=== PATIENT | female | born 1935 | race African-American/Black ===

== ENCOUNTER → 2018-10-25 | Outpatient (CLI) | payer MEDICARE ==
[2014-08-09 12:30] VITALS: BP 124/76
[~2018-10-25] MED LIST: ACET325T9 PO; ASPI325T8 PO; HYDR-2145 PO; LISI10TA2 PO
--- NOTE | 2018-10-25 11:42 | RAD ---
DATE: 10/25/2018 EXAM: MAMMO NORM SCREENING BILATERAL HISTORY: Routine screening COMPARISON: 05/07/2015 This study was interpreted with the benefit of Computerized Aided Detection (CAD). Breast Density: SCATTERED The breast parenchyma shows scattered fibroglandular densities. Breast parenchyma level B. FINDINGS: 2-D and 3-D tomosynthesis imaging was performed in CC and MLO projections. Several small smooth nodules are noted in both breasts. Bilateral smooth nodules such as this tended to be benign. The largest nodule on the left lies posteriorly and demonstrates an internal lucency suggesting the fatty hilum of an intramammary lymph node. On the right there is an 8 mm nodule at the 6:00 location as best seen on oblique tomosynthesis image #29 which appears to have increased in size. No spiculated mass or architectural distortion is evident. Multiple benign type calcifications are again noted. No suspicious microcalcifications have developed. IMPRESSION: Probably benign smooth bilateral breast nodules, although one of these on the right has increased in size since 05/07/2015. Right breast ultrasound is suggested for further evaluation. BI-RADS CATEGORY: 0 INCOMPLETE: NEEDS ADDITIONAL IMAGING EVALUATION AND/OR PRIOR MAMMOGRAMS FOR COMPARISON. RECOMMENDED FOLLOW-UP: ADD ADDITIONAL IMAGING PQRS compliance statement: Patient information was entered into a reminder system with a target due date for the next mammogram. Mammography is a sensitive method for finding small breast cancers, but it does not detect them all and is not a substitute for careful clinical examination. A negative mammogram does not negate a clinically suspicious finding and should not result in delay in biopsying a clinically suspicious abnormality. "Our facility is accredited by the [employer] Mammography Program."
== END | disposition home or self-care (01) ==
LOC: MAMMO 10:26
PROVIDERS: ATTEND Family Medicine
DX: Z12.31 Encounter for screening mammogram for malignant neoplasm of breast (principal)
CPT/HCPCS: 77063; 77067

== ENCOUNTER → 2018-10-26 | Outpatient (CLI) | payer MEDICARE ==
[2014-08-09 12:30] VITALS: BP 124/76
--- NOTE | 2018-10-26 11:33 | RAD ---
Right breast ultrasound, 10/26/2018: History: Abnormal screening study The screening mammograms demonstrated a nodule just inferior to the midline of the breast which appeared to have increased in size since previous studies. A targeted ultrasound exam of that region was therefore performed. At the 7:00 location approximately 3 cm in the nipple at mid depth there is a 7 x 5 x 7 mm smooth nodule. There are faint low level internal echoes without internal vascularity. There is faint posterior acoustic enhancement. This is probably a cyst. At the 6:00 location approximately 1 cm from the nipple a 2 x 4 x 5 mm hypoechoic nodule is seen. Its margins are smooth. It is wider than tall. There are low level internal echoes. This is probably a fibrocystic focus or complicated cyst. No other mass or unusual fluid collection was identified. IMPRESSION: Probably benign right breast nodules as described above, the largest of which most likely corresponds to the mammographic abnormality. Follow-up right mammography and right breast ultrasound in 6 months is suggested. BI-RADS 3-probably benign findings
== END | disposition home or self-care (01) ==
LOC: US 10:36
PROVIDERS: ATTEND Family Medicine
DX: R92.8 Other abnormal and inconclusive findings on diagnostic imaging of breast (principal)
CPT/HCPCS: 76641

== ENCOUNTER → 2019-08-01 | Outpatient (CLI) | payer MEDICARE ==
[2014-08-09 12:30] VITALS: BP 124/76
--- NOTE | 2019-08-01 09:53 | RAD ---
DATE: August 01, 2019 EXAM: MAMMO NORM DIAG RT, BREAST RIGHT SONOGRAPHY HISTORY: Follow-up of right breast nodules seen mammographically and sonographically. COMPARISON: October 25, 2018 and October 26, 2018. This study was interpreted with the benefit of Computerized Aided Detection (CAD). DIAGNOSTIC RIGHT-SIDED MAMMOGRAPHY FINDINGS: Breast Density: SCATTERED The breast parenchyma shows scattered fibroglandular densities. Breast parenchyma level B.. Nodules are stable. No new nodule or spiculated lesion or clustering of pleomorphic microcalcifications are evident. RIGHT BREAST SONOGRAPHY: High-resolution sonography of the 6 and 7:00 positions of the right breast was performed. At the 6:00 position 1 cm from the nipple, a 4 mm hypoechoic nodule is seen which is unchanged in size. At the 7:00 position 3 cm from the nipple, a 6 mm hypoechoic nodule is seen which is unchanged. IMPRESSION: Stable right breast nodules mammographically and sonographically. Recommend bilateral mammography in 6 months with right breast sonography. BI-RADS CATEGORY: 3 PROBABLE BENIGN-SHORT TERM F/U RECOMMENDED FOLLOW-UP: 6M 6 MONTH FOLLOW-UP PQRS compliance statement: Patient information was entered into a reminder system with a target due date January 31, 2020 for the next mammogram. Mammography is a sensitive method for finding small breast cancers, but it does not detect them all and is not a substitute for careful clinical examination. A negative mammogram does not negate a clinically suspicious finding and should not result in delay in biopsying a clinically suspicious abnormality. "Our facility is accredited by the [employer] Mammography Program." The patient's breast density may affect the ability of mammography to detect breast cancer. There are 4 categories of breast density, A, B, C and D. Breast density A means that most of the breast tissue is replaced with adipose tissue and therefore is not dense. Breast density B means that the breast tissue is mildly dense and scattered. Breast density C means that the breast tissue is heterogeneously dense. Breast density D means that the breast tissue is very dense. Breast densities especially C and D may decrease the sensitivity of mammography to detect breast cancer. Therefore, the patient may benefit from 3-D breast mammography (3D breast tomography) as a part of their screening mammogram. Insurance may or may not pay for this additional imaging. The patient's breast density based on today's mammogram is category B.
== END ==
LOC: MAMMO 13:04
PROVIDERS: ATTEND Family Medicine
DX: R92.8 Other abnormal and inconclusive findings on diagnostic imaging of breast (principal); N63.13 Unspecified lump in the right breast, lower outer quadrant
CPT/HCPCS: 76641; 77065; G0279; 77061

== ENCOUNTER 2020-03-05 09:26 | Inpatient (IN) | payer MEDICAID, MEDICARE ==
[~2020-03-05] VITALS: Ht 157.5 cm; Wt 73.4 kg
--- NOTE | 2020-03-05 10:11 | PHYS DOC ---
Past Medical History Past Medical History: Hypertension, TIA Past Surgical History: Tubal ligation Smoking Status: Former Smoker Alcohol Use: None Drug Use: None General Adult EDM: Chief Complaint: LOWER EXTREMITY SWELLING HPI: HPI: Patient is a 84 year old female who presented to ER today for evaluation of left leg pain and swelling since Tuesday. Patient denies any trouble breathing, no chest pain, no cough, no fever. Patient denies any injury, no recent travel or operation. Patient denies any history of blood clot disorder. Patient said when she walks she has blood pain in her left calf area Review of Systems: Review of Systems: Constitutional: Denies fever or chills. [] Eyes: Denies change in visual acuity. [] HENT: Denies nasal congestion or sore throat. [] Respiratory: Denies cough or shortness of breath. [] Cardiovascular: Denies chest pain or edema. [] GI: Denies abdominal pain, nausea, vomiting, bloody stools or diarrhea. [] : Denies dysuria. [] Musculoskeletal: Denies back pain or joint pain. Positive for left leg pain and swelling Integument: Denies rash. [] Neurologic: Denies headache, focal weakness or sensory changes. [] Endocrine: Denies polyuria or polydipsia. [] Lymphatic: Denies swollen glands. [] Psychiatric: Denies depression or anxiety. [] Heart Score: Risk Factors: Risk Factors: DM, Current or recent (<one month) smoker, HTN, HLP, family history of CAD, obesity. Risk Scores: Score 0 - 3: 2.5% MACE over next 6 weeks - Discharge Home Score 4 - 6: 20.3% MACE over next 6 weeks - Admit for Clinical Observation Score 7 - 10: 72.7% MACE over next 6 weeks - Early Invasive Strategies Allergies: Allergies: Allergies Coded Allergies Type Severity Reaction Last Updated Verified codeine Allergy Intermediate "sweats and shakes" 08/08/14 Yes Physical Exam: PE: Constitutional: Well developed, well nourished, no acute distress, non-toxic appearance. [] HENT: Normocephalic, atraumatic, bilateral external ears normal, oropharynx moist, no oral exudates, nose normal. [] Eyes: PERRLA, EOMI, conjunctiva normal, no discharge. [] Neck: Normal range of motion, no tenderness, supple, no stridor. [] Cardiovascular:Heart rate regular rhythm, no murmur [] Lungs & Thorax: Bilateral breath sounds clear to auscultation [] Abdomen: Bowel sounds normal, soft, no tenderness, no masses, no pulsatile masses. [] Skin: Warm, dry, no erythema, no rash. [] Back: No tenderness, no CVA tenderness. [] Extremities: left leg is tender and swollen, pitting edema, warm to touch. there is good dorsalis pedis pulse. Neurologic: Alert and oriented X 3, normal motor function, normal sensory function, no focal deficits noted. [] Psychologic: Affect normal, judgement normal, mood normal. [] Current Patient Data: Vital Signs: Vital Signs Date Time Temp Pulse Resp B/P (MAP) Pulse Ox O2 Delivery O2 Flow Rate FiO2 03/05/20 09:43 98.0 68 16 151/72 (98) 98 Room Air 98.0 EKG: EKG: [] Radiology/Procedures: Radiology/Procedures: [][facility] [address] [place] [address] IMAGING REPORT Signed PATIENT: ERIC MENDEZ ACCOUNT: [id number] : 1935 LOCATION: ER AGE: 84 SEX: F EXAM STATUS: REG ER ORD. PHYSICIAN: TORI MELÉNDEZ DO REASON: left leg swelling since Tuesday PROCEDURE: VENOUS LOWER EXTREMITY LEFT EXAM: Left lower extremity venous Doppler. HISTORY: Left lower extremity pain/swelling. COMPARISON: None. FINDINGS: Grayscale and Doppler analysis of the left lower extremity deep venous system was performed with graded compression and augmentation. The common femoral, greater saphenous, superficial femoral, popliteal and calf veins were assessed. There is occlusive thrombus within the common femoral, superficial femoral and popliteal veins. The greater saphenous vein is also involved. The calf veins do not appear involved. IMPRESSION: 1. Extensive left lower extremity deep venous thrombosis as above. These findings were called to Dr. Meléndez by Enoch Prasad on 03/05/2020 at 11:02 AM. FOR INTERNAL CODING PURPOSES RESULT CODE: (C) Electronically signed by: Charlette Prasad MD (03/05/2020 11:04 AM) [id number] DICTATED and SIGNED BY: CLIVE PRASAD MD DATE: 03/05/20 [id number] [place] [address] IMAGING REPORT Signed PATIENT: ERIC MENDEZ ACCOUNT: [id number] : 1935 LOCATION: ER AGE: 84 SEX: F EXAM STATUS: REG ER ORD. PHYSICIAN: TORI MELÉNDEZ DO REASON: SOA, DVT ON LEFT LEG PROCEDURE: PULMONARY PERFUSION IMG PARTIC NUCLEAR MEDICINE PERFUSION ONLY SCAN History: Shortness of air, DVT in left leg. Comparison: AP chest, same day. Technique: Perfusion portion performed after intravenous administration of 4.4 mCi Technetium 99m MAA. Multiple projection planar images of the lungs were obtained. Findings: Ventilation imaging not performed due to aerosolized droplet precautions. Perfusion images demonstrate no segmental perfusion defects. Elevation of right hemidiaphragm is noted. There is a small defect of the posterior right upper lung which may relate to attenuation from large calcified right paratracheal lymph nodes. IMPRESSION: Perfusion only imaging suggests there is a low probability for pulmonary embolus. Electronically signed by: Leroy Childs MD (03/05/2020 1:27 PM) [id number] DICTATED and SIGNED BY: LEROY CHILDS MD DATE: 03/05/20 [id number] [place], [place] [id number] IMAGING REPORT Signed PATIENT: ERIC MENDEZ ACCOUNT: [id number] : 1935 LOCATION: ER AGE: 84 SEX: F EXAM STATUS: REG ER ORD. PHYSICIAN: TORI MELÉNDEZ DO REASON: SHORTNESS OF BREATH PROCEDURE: CHEST AP ONLY EXAM: CHEST ONE VIEW. HISTORY: Shortness of breath. COMPARISON: 08/08/2014. FINDINGS: A frontal view of the chest is obtained. There are no confluent infiltrates. Moderate elevation of the right hemidiaphragm appears chronic. Linear scarring in the left midlung is also chronic. There is no pneumothorax or pleural effusion. The heart is not enlarged. Calcified lymph nodes likely reflect old granulomatous disease. There are atherosclerotic calcifications of the aorta. IMPRESSION: 1. No confluent infiltrates. Electronically signed by: Charlette Prasad MD (03/05/2020 12:05 PM) [id number] DICTATED and SIGNED BY: CLIVE PRASAD MD DATE: 03/05/20 1201 Course & Med Decision Making: Course & Med Decision Making Pertinent Labs and Imaging studies reviewed. (See chart for details) [] Dragon Disclaimer: Dragon Disclaimer: This electronic medical record was generated, in whole or in part, using a voice recognition dictation system. Departure Departure Impression: Primary Impression: DVT (deep venous thrombosis) Disposition: ADMITTED INPATIENT Admitting Physician: ALESSANDRO (DR. Diaz) Referrals: WISAM MENDOZA MD (PCP) Justicifation of Admission Dx: Justifications for Admission: Justification of Admission Dx: N/A TORI MELÉNDEZ DO Mar 05, 2020 10:11
--- NOTE | 2020-03-05 11:07 | RAD ---
EXAM: Left lower extremity venous Doppler. HISTORY: Left lower extremity pain/swelling. COMPARISON: None. FINDINGS: Grayscale and Doppler analysis of the left lower extremity deep venous system was performed with graded compression and augmentation. The common femoral, greater saphenous, superficial femoral, popliteal and calf veins were assessed. There is occlusive thrombus within the common femoral, superficial femoral and popliteal veins. The greater saphenous vein is also involved. The calf veins do not appear involved. IMPRESSION: 1. Extensive left lower extremity deep venous thrombosis as above. These findings were called to Dr. Becerra by Enoch Prasad on 03/05/2020 at 11:02 AM. FOR INTERNAL CODING PURPOSES RESULT CODE: (C) Electronically signed by: Charlette Prasad MD (03/05/2020 11:04 AM) [id number]
[2020-03-05 11:20] LABS: BASO % 1 % (0-3); EOS # 0.1 x10^3/uL (0.0-0.7); EOS % 1 % (0-3); HEMATOCRIT 39.7 % (36.0-47.0); HEMOGLOBIN 13.5 g/dL (12.0-15.5); LYMPH # 1.2 x10^3/uL (1.0-4.8); LYMPH % 13 % (24-48); MEAN CORPUSCULAR HEMOGLOBIN 31 pg (25-35); MEAN CORPUSCULAR HGB CONC 34 g/dL (31-37); MEAN CORPUSCULAR VOLUME 92 fL (79-100); MONO # 0.8 x10^3/uL (0.0-1.1); MONO % 9 % (0-9); NEUT # 6.9 x10^3/uL (1.8-7.7); NEUT % 77 % (31-73); PLATELET COUNT 159 x10^3/uL (140-400); RED BLOOD COUNT 4.31 x10^6/uL (3.50-5.40); RED CELL DISTRIBUTION WIDTH 12.6 % (11.5-14.5)
[2020-03-05 11:30] LABS: CALCIUM 9.3 mg/dL (8.5-10.1); CREATININE 1.5 mg/dL (0.6-1.0); GFR 39.9; POTASSIUM 3.9 mmol/L (3.5-5.1)
[2020-03-05 11:31] LABS: PROTHROMBIN TIME PATIENT 13.2 SEC (11.7-14.0)
[2020-03-05 11:35] LABS: ALBUMIN 3.6 g/dL (3.4-5.0); ALBUMIN/GLOBULIN RATIO 0.9 (1.0-1.7); TOTAL BILIRUBIN 0.7 mg/dL (0.2-1.0); TOTAL PROTEIN 7.8 g/dL (6.4-8.2)
--- NOTE | 2020-03-05 12:08 | RAD ---
EXAM: CHEST ONE VIEW. HISTORY: Shortness of breath. COMPARISON: 08/08/2014. FINDINGS: A frontal view of the chest is obtained. There are no confluent infiltrates. Moderate elevation of the right hemidiaphragm appears chronic. Linear scarring in the left midlung is also chronic. There is no pneumothorax or pleural effusion. The heart is not enlarged. Calcified lymph nodes likely reflect old granulomatous disease. There are atherosclerotic calcifications of the aorta. IMPRESSION: 1. No confluent infiltrates. Electronically signed by: Charlette Prasad MD (03/05/2020 12:05 PM) [id number]
[2020-03-05] MEDS ORDERED: MORPHINE SULFATE 4 MG/ML VIAL. IV ONE (12:45)
[2020-03-05] MEDS ORDERED: ONDANSETRON PF 4 MG/2 ML VIAL. IV PRN ×2 (13:00→13:15)
[2020-03-05] MEDS ORDERED: ALBUTEROL SULFATE 2.5 MG/3 ML NEBU. NEB PRN (13:00)
[2020-03-05] MEDS ORDERED: LORazepam 0.5 MG TABLET PO PRN (13:00)
[2020-03-05] MEDS ORDERED: guaiFENesin ORAL 200 MG/10 ML LIQUID. PO PRN (13:00)
[2020-03-05] MEDS ORDERED: ZOLPIDEM 5 MG TABLET. PO PRN (13:00)
[2020-03-05] MEDS ORDERED: ACETAMINOPHEN 325 MG TABLET. PO PRN ×2 (13:00)
[2020-03-05] MEDS ORDERED: DOCUSATE SODIUM 100 MG CAPSULE. PO PRN (13:00)
[2020-03-05] MEDS ORDERED: MORPHINE SULFATE 2 MG/ML VIAL. IV PRN (13:15)
--- NOTE | 2020-03-05 13:30 | RAD ---
NUCLEAR MEDICINE PERFUSION ONLY SCAN History: Shortness of air, DVT in left leg. Comparison: AP chest, same day. Technique: Perfusion portion performed after intravenous administration of 4.4 mCi Technetium 99m MAA. Multiple projection planar images of the lungs were obtained. Findings: Ventilation imaging not performed due to aerosolized droplet precautions. Perfusion images demonstrate no segmental perfusion defects. Elevation of right hemidiaphragm is noted. There is a small defect of the posterior right upper lung which may relate to attenuation from large calcified right paratracheal lymph nodes. IMPRESSION: Perfusion only imaging suggests there is a low probability for pulmonary embolus. Electronically signed by: Leroy Childs MD (03/05/2020 1:27 PM) [id number]
--- NOTE | 2020-03-05 14:44 | PDOC1 ---
History and Physical Date of Admission Date of Admission 03/05/2020 Identification/Chief Complaint Chief Complaint My leg is swollen Source Source: Chart review, Patient History of Present Illness History of Present Illness Patient is an 84-year-old female with past medical history of hypertension who was in her usual state of health until 4 days prior to her admission when she noticed some swelling over her left lower extremity. Patient probably attributed to some chips that she may have eaten with excess salt. The patient did not self medicate at home and continue to notice leg swelling and today she got quite concerned because she palpated a cord prompting her visit to the emergency department. Her daughters work at [employer] and they noticed also the significant swelling prompting her visit to the emergency department she has been found to have an extensive left lower extremity DVT and we have been asked to admit for further treatment. Patient denies any trauma to the area no recent falls no travels outside the area no prolonged time of immobility. This seems to be non-provoked DVT, she seems to have her age-appropriate cancer screening up-to-date, she will probably need at least minimum 3 months of anticoagulation further evaluation in the outpatient setting by hematology. Plan of care explained in detail to the patient and her daughter at bedside Past Medical History Past Medical History Past Medical History: Hypertension, TIA Past Surgical History: Tubal ligation Smoking Status: Former Smoker Alcohol Use: None Drug Use: None General Adult General Adult EDM: Chief Complaint: LOWER EXTREMITY SWELLING HPI: HPI: Patient is a 84 year old female who presented to ER today for evaluation of left leg pain and swelling since Tuesday. Patient denies any trouble breathing, no chest pain, no cough, no fever. Patient denies any injury, no recent travel or operation. Patient denies any history of blood clot disorder. Patient said when she walks she has blood pain in her left calf area Past Medical History Cardiovascular: HTN CENTRAL NERVOUS SYSTEM: TIA Past Surgical History Past Surgical History: Other, No pertinent history Family History Family History: Other (Reviewed and found negative noncontributory to the present) Current Problem List Problem List Problems Medical Problems: (1) DVT (deep venous thrombosis) Status: Acute Current Medications Current Medications Current Medications Medications (Trade) Dose Ordered Sig/Robbie Start Time Stop Time Status Last Admin Dose Admin Acetaminophen (Tylenol) 650 mg PRN Q6HRS PRN 03/05/20 13:00 Albuterol Sulfate (Ventolin Neb Soln) 2.5 mg PRN Q4HRS PRN 03/05/20 13:00 Aspirin (Alma Delia Aspirin) 325 mg DAILY 03/06/20 09:00 Docusate Sodium (Colace) 100 mg PRN BID PRN 03/05/20 13:00 Enoxaparin Sodium (Lovenox 80mg Syringe) 80 mg 1X ONCE 03/05/20 12:30 03/05/20 12:31 DC 03/05/20 13:13 80 MG Guaifenesin (Robitussin) 200 mg PRN Q4HRS PRN 03/05/20 13:00 Hydrochlorothiazide (Hydrodiuril) 25 mg DAILY 03/06/20 09:00 Lisinopril (Prinivil) 10 mg DAILY 03/06/20 09:00 Lorazepam (Ativan) 0.5 mg PRN Q4HRS PRN 03/05/20 13:00 Morphine Sulfate (Morphine Sulfate) 2 mg PRN Q2HR PRN 03/05/20 13:15 03/06/20 13:14 Ondansetron HCl (Zofran) 4 mg PRN Q8HRS PRN 03/05/20 13:15 03/06/20 13:14 Zolpidem Tartrate (Ambien) 5 mg PRN QHS PRN 03/05/20 13:00 Allergies Allergies Allergies Coded Allergies Type Severity Reaction Last Updated Verified codeine Allergy Intermediate "sweats and shakes" 08/08/14 Yes ROS Review of System CONSTITUTIONAL: No fever or chills EYES: No recent changes SKIN: No rash or itching CARDIOVASCULAR: No chest pain, syncope, palpitations, or edema RESPIRATORY: No SOB or cough GASTROINTESTINAL: No nausea, vomiting or abdominal pain NEUROLOGICAL: No headaches or weakness ENDOCRINE: No cold or heat intolerance GENITOURINARY: No urgency or frequency of urination MUSCULOSKELETAL: No back pain or joint pain LYMPHATICS: No enlarged lymph nodes PSYCHIATRIC: No anxiety or depression Physical Exam Physical Exam GEN.: No apparent distress. Alert and oriented. HEENT: Head is normocephalic, atraumatic NECK: Supple. LUNGS: Clear to auscultation. HEART: RRR, S1, S2 present. Faint systolic murmur no radiation to the carotid peripheral pulses intact ABDOMEN: Soft, nontender. Positive bowel sounds. EXTREMITIES: Without any cyanosis. NEUROLOGIC: Normal speech, normal tone PSYCHIATRIC: Normal affect, normal mood. SKIN: No ulcerations Vitals Vitals Vital Signs Date Time Temp Pulse Resp B/P (MAP) Pulse Ox O2 Delivery O2 Flow Rate FiO2 03/05/20 13:14 84 148/68 (94) 98 Room Air 03/05/20 09:43 98.0 16 98.0 Labs Labs Laboratory Tests Test 03/05/20 11:11 White Blood Count 9.0 x10^3/uL (4.0-11.0) Red Blood Count 4.31 x10^6/uL (3.50-5.40) Hemoglobin 13.5 g/dL (12.0-15.5) Hematocrit 39.7 % (36.0-47.0) Mean Corpuscular Volume 92 fL (79-100) Mean Corpuscular Hemoglobin 31 pg (25-35) Mean Corpuscular Hemoglobin Concent 34 g/dL (31-37) Red Cell Distribution Width 12.6 % (11.5-14.5) Platelet Count 159 x10^3/uL (140-400) Neutrophils (%) (Auto) 77 % (31-73) Lymphocytes (%) (Auto) 13 % (24-48) Monocytes (%) (Auto) 9 % (0-9) Eosinophils (%) (Auto) 1 % (0-3) Basophils (%) (Auto) 1 % (0-3) Neutrophils # (Auto) 6.9 x10^3/uL (1.8-7.7) Lymphocytes # (Auto) 1.2 x10^3/uL (1.0-4.8) Monocytes # (Auto) 0.8 x10^3/uL (0.0-1.1) Eosinophils # (Auto) 0.1 x10^3/uL (0.0-0.7) Basophils # (Auto) 0.0 x10^3/uL (0.0-0.2) Prothrombin Time 13.2 SEC (11.7-14.0) Prothromb Time International Ratio 1.0 (0.8-1.1) Activated Partial Thromboplast Time 26 SEC (24-38) Sodium Level 135 mmol/L (136-145) Potassium Level 3.9 mmol/L (3.5-5.1) Chloride Level 98 mmol/L (98-107) Carbon Dioxide Level 30 mmol/L (21-32) Anion Gap 7 (6-14) Blood Urea Nitrogen 26 mg/dL (7-20) Creatinine 1.5 mg/dL (0.6-1.0) Estimated GFR (Cockcroft-Gault) 39.9 BUN/Creatinine Ratio 17 (6-20) Glucose Level 101 mg/dL (70-99) Calcium Level 9.3 mg/dL (8.5-10.1) Total Bilirubin 0.7 mg/dL (0.2-1.0) Aspartate Amino Transf (AST/SGOT) 17 U/L (15-37) Alanine Aminotransferase (ALT/SGPT) 21 U/L (14-59) Alkaline Phosphatase 53 U/L (46-116) Total Protein 7.8 g/dL (6.4-8.2) Albumin 3.6 g/dL (3.4-5.0) Albumin/Globulin Ratio 0.9 (1.0-1.7) Laboratory Tests Test 03/05/20 11:11 White Blood Count 9.0 x10^3/uL (4.0-11.0) Red Blood Count 4.31 x10^6/uL (3.50-5.40) Hemoglobin 13.5 g/dL (12.0-15.5) Hematocrit 39.7 % (36.0-47.0) Mean Corpuscular Volume 92 fL (79-100) Mean Corpuscular Hemoglobin 31 pg (25-35) Mean Corpuscular Hemoglobin Concent 34 g/dL (31-37) Red Cell Distribution Width 12.6 % (11.5-14.5) Platelet Count 159 x10^3/uL (140-400) Neutrophils (%) (Auto) 77 % (31-73) Lymphocytes (%) (Auto) 13 % (24-48) Monocytes (%) (Auto) 9 % (0-9) Eosinophils (%) (Auto) 1 % (0-3) Basophils (%) (Auto) 1 % (0-3) Neutrophils # (Auto) 6.9 x10^3/uL (1.8-7.7) Lymphocytes # (Auto) 1.2 x10^3/uL (1.0-4.8) Monocytes # (Auto) 0.8 x10^3/uL (0.0-1.1) Eosinophils # (Auto) 0.1 x10^3/uL (0.0-0.7) Basophils # (Auto) 0.0 x10^3/uL (0.0-0.2) Prothrombin Time 13.2 SEC (11.7-14.0) Prothromb Time International Ratio 1.0 (0.8-1.1) Activated Partial Thromboplast Time 26 SEC (24-38) Sodium Level 135 mmol/L (136-145) Potassium Level 3.9 mmol/L (3.5-5.1) Chloride Level 98 mmol/L (98-107) Carbon Dioxide Level 30 mmol/L (21-32) Anion Gap 7 (6-14) Blood Urea Nitrogen 26 mg/dL (7-20) Creatinine 1.5 mg/dL (0.6-1.0) Estimated GFR (Cockcroft-Gault) 39.9 BUN/Creatinine Ratio 17 (6-20) Glucose Level 101 mg/dL (70-99) Calcium Level 9.3 mg/dL (8.5-10.1) Total Bilirubin 0.7 mg/dL (0.2-1.0) Aspartate Amino Transf (AST/SGOT) 17 U/L (15-37) Alanine Aminotransferase (ALT/SGPT) 21 U/L (14-59) Alkaline Phosphatase 53 U/L (46-116) Total Protein 7.8 g/dL (6.4-8.2) Albumin 3.6 g/dL (3.4-5.0) Albumin/Globulin Ratio 0.9 (1.0-1.7) VTE Prophylaxis Ordered VTE Prophylaxis Devices: Yes VTE Pharmacological Prophylaxi: Yes Assessment/Plan Assessment/Plan Occlusive thrombus within the common femoral, superficial femoral and popliteal veins. The greater saphenous vein is also involved. Essential hypertension Obesity with a BMI of 30 Hyponatremia Chronic kidney disease stage IIIb Plan We will start Eliquis Resume home medication Pain management Further recommendations based on the clinical Justicifation of Admission Dx: Justifications for Admission: Justification of Admission Dx: Comment: (Extensive lower extremity DVT) MARISA GOTTI MD Mar 05, 2020 14:43
--- NOTE | 2020-03-05 19:10 | NUR ---
The patient, ERIC MENDEZ, 84 y/o, F admitted by MARISA GOTTI MD, was given written information regarding hospital policies, unit procedures and contact persons. Valuables were checked and left with her.
[2020-03-05 19:23] VITALS: BP 134/68
[2020-03-05] MEDS: APIXABAN 5 MG TABLET. PO SCH (19:39)
[2020-03-05 23:08] VITALS: BP 126/63
[2020-03-06 02:40] VITALS: BP 121/62
[2020-03-06 07:58] VITALS: BP 136/71
[2020-03-06] MEDS ORDERED: LOSA50TA15 PO (08:33)
[2020-03-06] MEDS: APIXABAN 5 MG TABLET. PO SCH (08:33)
[2020-03-06] MEDS ORDERED: ASPI81TA59 PO (08:33)
[2020-03-06] MEDS ORDERED: ASPIRIN 325 MG TABLET PO SCH (09:00)
[2020-03-06] MEDS ORDERED: LISINOPRIL 10 MG TABLET PO SCH (09:00)
[2020-03-06] MEDS ORDERED: hydroCHLOROthiazide 25 MG TABLET PO SCH (09:00)
--- NOTE | 2020-03-06 09:19 | PDOC ---
PROGRESS NOTES Chief Complaint Chief Complaint A/P: Occlusive thrombus within the common femoral, superficial femoral and popliteal veins. The greater saphenous vein is also involved. Essential hypertension Obesity with a BMI of 30 Hyponatremia Chronic kidney disease stage IIIb History of Present Illness History of Present Illness Ms Holman is an 84yo F w/ PMHx HTN, CKD who was admitted for LLE swelling and pain, found with extensive DVT in LLE. 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 Had pain in her LLE and swelling starting on 03/02/2020 which progressed until she could not tolerate it anymore. VQ scan low risk for PE, no CP or SOB. Still with some pain in her leg, but swelling has decreased. Vitals Vitals Vital Signs Date Time Temp Pulse Resp B/P (MAP) Pulse Ox O2 Delivery O2 Flow Rate FiO2 03/06/20 07:58 98.0 76 17 136/71 (92) 99 Room Air 98.0 Physical Exam Lungs: Clear Labs LABS Laboratory Tests Test 03/05/20 11:11 03/06/20 07:48 White Blood Count 9.0 x10^3/uL (4.0-11.0) Red Blood Count 4.31 x10^6/uL (3.50-5.40) Hemoglobin 13.5 g/dL (12.0-15.5) Hematocrit 39.7 % (36.0-47.0) Mean Corpuscular Volume 92 fL (79-100) Mean Corpuscular Hemoglobin 31 pg (25-35) Mean Corpuscular Hemoglobin Concent 34 g/dL (31-37) Red Cell Distribution Width 12.6 % (11.5-14.5) Platelet Count 159 x10^3/uL (140-400) Neutrophils (%) (Auto) 77 % (31-73) Lymphocytes (%) (Auto) 13 % (24-48) Monocytes (%) (Auto) 9 % (0-9) Eosinophils (%) (Auto) 1 % (0-3) Basophils (%) (Auto) 1 % (0-3) Neutrophils # (Auto) 6.9 x10^3/uL (1.8-7.7) Lymphocytes # (Auto) 1.2 x10^3/uL (1.0-4.8) Monocytes # (Auto) 0.8 x10^3/uL (0.0-1.1) Eosinophils # (Auto) 0.1 x10^3/uL (0.0-0.7) Basophils # (Auto) 0.0 x10^3/uL (0.0-0.2) Prothrombin Time 13.2 SEC (11.7-14.0) Prothromb Time International Ratio 1.0 (0.8-1.1) Activated Partial Thromboplast Time 26 SEC (24-38) Sodium Level 135 mmol/L (136-145) Potassium Level 3.9 mmol/L (3.5-5.1) Chloride Level 98 mmol/L (98-107) Carbon Dioxide Level 30 mmol/L (21-32) Anion Gap 7 (6-14) Blood Urea Nitrogen 26 mg/dL (7-20) Creatinine 1.5 mg/dL (0.6-1.0) Estimated GFR (Cockcroft-Gault) 39.9 BUN/Creatinine Ratio 17 (6-20) Glucose Level 101 mg/dL (70-99) Calcium Level 9.3 mg/dL (8.5-10.1) Total Bilirubin 0.7 mg/dL (0.2-1.0) Aspartate Amino Transf (AST/SGOT) 17 U/L (15-37) Alanine Aminotransferase (ALT/SGPT) 21 U/L (14-59) Alkaline Phosphatase 53 U/L (46-116) Total Protein 7.8 g/dL (6.4-8.2) Albumin 3.6 g/dL (3.4-5.0) Albumin/Globulin Ratio 0.9 (1.0-1.7) Glucose (Fingerstick) 93 mg/dL (70-99) Assessment and Plan Assessmemt and Plan Problems Medical Problems: (1) DVT (deep venous thrombosis) Status: Acute Comment Review of Relevant I have reviewed the following items mickey (where applicable) has been applied. Labs Laboratory Tests Test 03/05/20 11:11 03/06/20 07:48 White Blood Count 9.0 x10^3/uL (4.0-11.0) Red Blood Count 4.31 x10^6/uL (3.50-5.40) Hemoglobin 13.5 g/dL (12.0-15.5) Hematocrit 39.7 % (36.0-47.0) Mean Corpuscular Volume 92 fL (79-100) Mean Corpuscular Hemoglobin 31 pg (25-35) Mean Corpuscular Hemoglobin Concent 34 g/dL (31-37) Red Cell Distribution Width 12.6 % (11.5-14.5) Platelet Count 159 x10^3/uL (140-400) Neutrophils (%) (Auto) 77 % (31-73) Lymphocytes (%) (Auto) 13 % (24-48) Monocytes (%) (Auto) 9 % (0-9) Eosinophils (%) (Auto) 1 % (0-3) Basophils (%) (Auto) 1 % (0-3) Neutrophils # (Auto) 6.9 x10^3/uL (1.8-7.7) Lymphocytes # (Auto) 1.2 x10^3/uL (1.0-4.8) Monocytes # (Auto) 0.8 x10^3/uL (0.0-1.1) Eosinophils # (Auto) 0.1 x10^3/uL (0.0-0.7) Basophils # (Auto) 0.0 x10^3/uL (0.0-0.2) Prothrombin Time 13.2 SEC (11.7-14.0) Prothromb Time International Ratio 1.0 (0.8-1.1) Activated Partial Thromboplast Time 26 SEC (24-38) Sodium Level 135 mmol/L (136-145) Potassium Level 3.9 mmol/L (3.5-5.1) Chloride Level 98 mmol/L (98-107) Carbon Dioxide Level 30 mmol/L (21-32) Anion Gap 7 (6-14) Blood Urea Nitrogen 26 mg/dL (7-20) Creatinine 1.5 mg/dL (0.6-1.0) Estimated GFR (Cockcroft-Gault) 39.9 BUN/Creatinine Ratio 17 (6-20) Glucose Level 101 mg/dL (70-99) Calcium Level 9.3 mg/dL (8.5-10.1) Total Bilirubin 0.7 mg/dL (0.2-1.0) Aspartate Amino Transf (AST/SGOT) 17 U/L (15-37) Alanine Aminotransferase (ALT/SGPT) 21 U/L (14-59) Alkaline Phosphatase 53 U/L (46-116) Total Protein 7.8 g/dL (6.4-8.2) Albumin 3.6 g/dL (3.4-5.0) Albumin/Globulin Ratio 0.9 (1.0-1.7) Glucose (Fingerstick) 93 mg/dL (70-99) Laboratory Tests Test 03/05/20 11:11 03/06/20 07:48 White Blood Count 9.0 x10^3/uL (4.0-11.0) Red Blood Count 4.31 x10^6/uL (3.50-5.40) Hemoglobin 13.5 g/dL (12.0-15.5) Hematocrit 39.7 % (36.0-47.0) Mean Corpuscular Volume 92 fL (79-100) Mean Corpuscular Hemoglobin 31 pg (25-35) Mean Corpuscular Hemoglobin Concent 34 g/dL (31-37) Red Cell Distribution Width 12.6 % (11.5-14.5) Platelet Count 159 x10^3/uL (140-400) Neutrophils (%) (Auto) 77 % (31-73) Lymphocytes (%) (Auto) 13 % (24-48) Monocytes (%) (Auto) 9 % (0-9) Eosinophils (%) (Auto) 1 % (0-3) Basophils (%) (Auto) 1 % (0-3) Neutrophils # (Auto) 6.9 x10^3/uL (1.8-7.7) Lymphocytes # (Auto) 1.2 x10^3/uL (1.0-4.8) Monocytes # (Auto) 0.8 x10^3/uL (0.0-1.1) Eosinophils # (Auto) 0.1 x10^3/uL (0.0-0.7) Basophils # (Auto) 0.0 x10^3/uL (0.0-0.2) Prothrombin Time 13.2 SEC (11.7-14.0) Prothromb Time International Ratio 1.0 (0.8-1.1) Activated Partial Thromboplast Time 26 SEC (24-38) Sodium Level 135 mmol/L (136-145) Potassium Level 3.9 mmol/L (3.5-5.1) Chloride Level 98 mmol/L (98-107) Carbon Dioxide Level 30 mmol/L (21-32) Anion Gap 7 (6-14) Blood Urea Nitrogen 26 mg/dL (7-20) Creatinine 1.5 mg/dL (0.6-1.0) Estimated GFR (Cockcroft-Gault) 39.9 BUN/Creatinine Ratio 17 (6-20) Glucose Level 101 mg/dL (70-99) Calcium Level 9.3 mg/dL (8.5-10.1) Total Bilirubin 0.7 mg/dL (0.2-1.0) Aspartate Amino Transf (AST/SGOT) 17 U/L (15-37) Alanine Aminotransferase (ALT/SGPT) 21 U/L (14-59) Alkaline Phosphatase 53 U/L (46-116) Total Protein 7.8 g/dL (6.4-8.2) Albumin 3.6 g/dL (3.4-5.0) Albumin/Globulin Ratio 0.9 (1.0-1.7) Glucose (Fingerstick) 93 mg/dL (70-99) Medications Current Medications Enoxaparin Sodium (Lovenox 80mg Syringe) 80 mg 1X ONCE SQ Last administered on 03/05/20at 13:13; Start 03/05/20 at 12:30; Stop 03/05/20 at 12:31; Status DC Morphine Sulfate (Morphine Sulfate) 4 mg 1X ONCE IV Last administered on 03/05/20at 13:13; Start 03/05/20 at 12:45; Stop 03/05/20 at 12:46; Status DC Ondansetron HCl (Zofran) 4 mg PRN Q4HRS PRN IV NAUSEA/VOMITING; Start 03/05/20 at 13:00 Zolpidem Tartrate (Ambien) 5 mg PRN QHS PRN PO INSOMNIA; Start 03/05/20 at 13:00 Acetaminophen (Tylenol) 650 mg PRN Q4HRS PRN PO TEMP OVER 100.4F OR MILD PAIN; Start 03/05/20 at 13:00 Docusate Sodium (Colace) 100 mg PRN BID PRN PO HARD STOOLS; Start 03/05/20 at 13:00 Albuterol Sulfate (Ventolin Neb Soln) 2.5 mg PRN Q4HRS PRN NEB SHORTNESS OF BREATH; Start 03/05/20 at 13:00 Guaifenesin (Robitussin) 200 mg PRN Q4HRS PRN PO COUGH; Start 03/05/20 at 13:00 Lorazepam (Ativan) 0.5 mg PRN Q4HRS PRN PO ANXIETY / AGITATION; Start 03/05/20 at 13:00 Acetaminophen (Tylenol) 650 mg PRN Q6HRS PRN PO MILD PAIN 1-3; Start 03/05/20 at 13:00 Aspirin (Alma Delia Aspirin) 325 mg DAILY PO ; Start 03/06/20 at 09:00 Hydrochlorothiazide (Hydrodiuril) 25 mg DAILY PO Last administered on 03/06/20at 08:29; Start 03/06/20 at 09:00 Lisinopril (Prinivil) 10 mg DAILY PO ; Start 03/06/20 at 09:00 Ondansetron HCl (Zofran) 4 mg PRN Q8HRS PRN IV NAUSEA/VOMITING; Start 03/05/20 at 13:15; Stop 03/06/20 at 13:14 Morphine Sulfate (Morphine Sulfate) 2 mg PRN Q2HR PRN IV PAIN; Start 03/05/20 at 13:15; Stop 03/06/20 at 13:14 Apixaban (Eliquis) 10 mg BID PO Last administered on 03/06/20at 08:33; Start 03/05/20 at 21:00; Stop 03/12/20 at 09:01 Apixaban (Eliquis) 5 mg BID PO ; Start 03/12/20 at 21:00 Active Scripts Active Reported Children's Aspirin (Aspirin) 81 Mg Tab.chew 1 Tab PO DAILY 30 Days Losartan Potassium 50 Mg Tablet 50 Mg PO DAILY Hydrochlorothiazide Tablet (Hydrochlorothiazide) 25 Mg Tablet 1 Tab PO DAILY Indication: blood pressure Next dose: 08/10/14 am Tylenol (Acetaminophen) 325 Mg Tablet 650 Mg PO PRN Vitals/I & O Vital Sign - Last 24 Hours 03/05/20 03/05/20 03/05/20 03/05/20 09:43 10:27 11:27 11:57 Temp 98.0 98.0 Pulse 68 82 78 74 Resp 16 B/P (MAP) 151/72 (98) 130/60 (83) 136/62 (86) 138/86 (103) Pulse Ox 98 100 100 100 O2 Delivery Room Air Room Air Room Air 03/05/20 03/05/20 03/05/20 03/05/20 12:27 13:14 13:44 14:44 Pulse 76 84 80 68 B/P (MAP) 111/76 (88) 148/68 (94) 149/68 (95) 134/61 (85) Pulse Ox 96 98 100 99 O2 Delivery Room Air Room Air Room Air 03/05/20 03/05/20 03/05/20 03/05/20 15:30 15:44 16:44 17:44 Pulse 72 70 82 B/P (MAP) 131/84 (100) 126/60 (82) 127/70 (89) Pulse Ox 97 100 98 99 O2 Delivery Room Air Room Air Room Air Room Air 03/05/20 03/05/20 03/05/20 03/05/20 18:14 19:23 20:00 23:08 Temp 98.8 98.0 98.8 98.0 Pulse 76 62 77 Resp 20 16 B/P (MAP) 139/63 (88) 134/68 (90) 126/63 (84) Pulse Ox 98 97 99 O2 Delivery Room Air Room Air Room Air Room Air 03/06/20 03/06/20 02:40 07:58 Temp 98.1 98.0 98.1 98.0 Pulse 77 76 Resp 17 17 B/P (MAP) 121/62 (81) 136/71 (92) Pulse Ox 100 99 O2 Delivery Room Air Room Air Intake and Output 03/05/20 03/05/20 03/06/20 14:59 22:59 06:59 Intake Total 120 ml 250 ml Output Total 150 ml Balance -30 ml 250 ml Justicifation of Admission Dx: Justifications for Admission: Justification of Admission Dx: N/A JOVANNI WALTON MD Mar 06, 2020 09:19
--- NOTE | 2020-03-06 09:41 | NUR ---
SW following. Discussed with RN, pt from home alone, room air. Pt is ambulatory, does not use a walker or cane. SW will continue to follow.
[2020-03-06 11:21] VITALS: BP 134/65
[2020-03-06] MEDS ORDERED: ASPIRIN CHEWABLE 81 MG TABLET. PO SCH (11:30)
[2020-03-06] MEDS ORDERED: LOSARTAN POTASSIUM 50 MG TABLET. PO SCH (11:30)
[2020-03-06 15:07] VITALS: BP 116/57
[2020-03-06] MEDS ORDERED: APIX5TAB PO (16:31)
--- NOTE | 2020-03-06 16:36 | PDOC3 ---
Discharge Summary Visit Information Date of Admission: Mar 05, 2020 Date of Discharge: Mar 06, 2020 Admitting Diagnosis: Acute left leg DVT Final Diagnosis Problems Medical Problems: (1) DVT (deep venous thrombosis) Status: Acute Brief Hospital Course Allergies Allergies Coded Allergies Type Severity Reaction Last Updated Verified codeine Allergy Intermediate "sweats and shakes" 08/08/14 Yes Vital Signs Vital Signs Date Time Temp Pulse Resp B/P (MAP) Pulse Ox O2 Delivery O2 Flow Rate FiO2 03/06/20 15:07 98.6 70 17 116/57 (76) 100 Room Air 98.6 Lab Results Laboratory Tests Test 03/05/20 11:11 03/06/20 07:48 White Blood Count 9.0 x10^3/uL (4.0-11.0) Red Blood Count 4.31 x10^6/uL (3.50-5.40) Hemoglobin 13.5 g/dL (12.0-15.5) Hematocrit 39.7 % (36.0-47.0) Mean Corpuscular Volume 92 fL (79-100) Mean Corpuscular Hemoglobin 31 pg (25-35) Mean Corpuscular Hemoglobin Concent 34 g/dL (31-37) Red Cell Distribution Width 12.6 % (11.5-14.5) Platelet Count 159 x10^3/uL (140-400) Neutrophils (%) (Auto) 77 % (31-73) Lymphocytes (%) (Auto) 13 % (24-48) Monocytes (%) (Auto) 9 % (0-9) Eosinophils (%) (Auto) 1 % (0-3) Basophils (%) (Auto) 1 % (0-3) Neutrophils # (Auto) 6.9 x10^3/uL (1.8-7.7) Lymphocytes # (Auto) 1.2 x10^3/uL (1.0-4.8) Monocytes # (Auto) 0.8 x10^3/uL (0.0-1.1) Eosinophils # (Auto) 0.1 x10^3/uL (0.0-0.7) Basophils # (Auto) 0.0 x10^3/uL (0.0-0.2) Prothrombin Time 13.2 SEC (11.7-14.0) Prothromb Time International Ratio 1.0 (0.8-1.1) Activated Partial Thromboplast Time 26 SEC (24-38) Sodium Level 135 mmol/L (136-145) Potassium Level 3.9 mmol/L (3.5-5.1) Chloride Level 98 mmol/L (98-107) Carbon Dioxide Level 30 mmol/L (21-32) Anion Gap 7 (6-14) Blood Urea Nitrogen 26 mg/dL (7-20) Creatinine 1.5 mg/dL (0.6-1.0) Estimated GFR (Cockcroft-Gault) 39.9 BUN/Creatinine Ratio 17 (6-20) Glucose Level 101 mg/dL (70-99) Calcium Level 9.3 mg/dL (8.5-10.1) Total Bilirubin 0.7 mg/dL (0.2-1.0) Aspartate Amino Transf (AST/SGOT) 17 U/L (15-37) Alanine Aminotransferase (ALT/SGPT) 21 U/L (14-59) Alkaline Phosphatase 53 U/L (46-116) Total Protein 7.8 g/dL (6.4-8.2) Albumin 3.6 g/dL (3.4-5.0) Albumin/Globulin Ratio 0.9 (1.0-1.7) Glucose (Fingerstick) 93 mg/dL (70-99) Laboratory Tests Test 03/06/20 07:48 Glucose (Fingerstick) 93 mg/dL (70-99) Brief Hospital Course Ms Holman is an 84yo F w/ PMHx HTN, CKD who was admitted for LLE swelling and pain, found with extensive DVT in LLE. 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 Had pain in her LLE and swelling starting on 03/02/2020 which progressed until she could not tolerate it anymore. VQ scan low risk for PE, no CP or SOB. Still with some pain in her leg, but swelling has decreased. Discussed with her and her daughter bedside she would be okay to go home 10 mg twice daily for an additional 5 days with Eliquis and then decrease to 5 mg twice daily and have follow-up outpatient with hematology oncology in 3 months to check a fibrinogen level and possibly repeat ultrasound. As this is unprovoked she could potentially get off Eliquis. Based on her age she is technically up-to-date on all cancer screenings as she even had breast ultrasound last year and is has had arrange for other [employer] screenings. She is unaware of any prior history of abnormal colonoscopies, but she states due to her CVA 4 years ago she cannot recall her colonoscopies very well her daughter said that she had a normal colonoscopy over 5 years ago. Consults: Hematology oncology Problem list: Occlusive thrombus within the common femoral, superficial femoral and popliteal veins. The greater saphenous vein is also involved. Essential hypertension Obesity with a BMI of 30 Hyponatremia Chronic kidney disease stage IIIb Greater than 30 minutes spent on d/c Discharge Information Condition at Discharge: Improved Follow Up: Weeks Disposition/Orders: D/C to Home Scheduled Apixaban (Eliquis) 5 Mg Tablet, 5 MG PO BID for Left leg DVT for 30 Days, #70 Ref 5 Prescribed by: JOVANNI WALTON MD on 03/06/20 1631 Aspirin (Children's Aspirin) 81 Mg Tab.chew, 1 TAB PO DAILY for Heart for 30 Days, #30 Ref 0 (Reported) Entered as Reported by: LOW AGUILAR on 03/06/20 0833 Last Taken: Unknown Dose on Unknown Date & Time Last Action: Continued on 03/06/20 1126 by JOVANNI WALTON MD Hydrochlorothiazide (Hydrochlorothiazide Tablet ) 25 Mg Tablet, 1 TAB PO DAILY, #30 Ref 5 (Reported) Indication: blood pressure Next dose: 08/10/14 am Entered as Reported by: VAN ROCK on 08/09/14 1254 Last Action: Continued on 03/05/20 1254 by MARISA GOTTI MD Losartan Potassium (Losartan Potassium) 50 Mg Tablet, 50 MG PO DAILY for htn, (Reported) Entered as Reported by: LOW AGUILAR on 03/06/20 0833 Last Taken: Unknown Dose on Unknown Date & Time Last Action: Continued on 03/06/20 1126 by JOVANNI WALTON MD Scheduled PRN Acetaminophen (Tylenol) 325 Mg Tablet, 650 MG PO for PAIN, (Reported) Entered as Reported by: RENÉ MIKE on 08/08/14 1132 Last Action: Continued on 03/05/20 1254 by MARISA GOTTI MD Justicifation of Admission Dx: Justifications for Admission: Justification of Admission Dx: N/A JOVANNI WALTON MD Mar 06, 2020 16:36
--- NOTE | 2020-03-06 16:57 | PDOC2 ---
CONSULT Date of Consult Date of Consult DATE: 03/06/20 TIME: 16:52 Reason for Consult Reason for Consult: Left lower extremity DVT Referring Physician Referring Physician: Dr. Verdin Identification/Chief Complaint Chief Complaint Left leg pain and swelling Problems: (1) DVT (deep venous thrombosis) Source Source: Chart review, Patient History of Present Illness Reason for Visit: Bekah Holman is an 84-year-old -[place] female with a prior medical history of hypertension who has been admitted to the hospital for management of DVT. Patient reports that she noticed left lower extremity swelling and pain over the last 1 week. Due to worsening symptoms, she elected to go to the emergency room for further evaluation. She received an ultrasound Doppler of the left lower extremity in the ER which showed DVT involving the left common femoral superficial femoral and popliteal veins. She has been admitted to the hospital and has started therapeutic anticoagulation. Hematology has been consulted to make recommendations regarding anticoagulation. Patient denies recent history of immobilization, prolonged travel, estrogen use, orthopedic interventions or other illnesses. She has no prior history of clots. She follows with primary care but has not received cancer screening for a few years. Past Medical History Cardiovascular: HTN CENTRAL NERVOUS SYSTEM: TIA Past Surgical History Past Surgical History: Other, No pertinent history Family History Family History: Other (Reviewed and found negative noncontributory to the present) Current Problem List Problem List Problems Medical Problems: (1) DVT (deep venous thrombosis) Status: Acute Current Medications Current Medications Current Medications Enoxaparin Sodium (Lovenox 80mg Syringe) 80 mg 1X ONCE SQ Last administered on 03/05/20at 13:13; Start 03/05/20 at 12:30; Stop 03/05/20 at 12:31; Status DC Morphine Sulfate (Morphine Sulfate) 4 mg 1X ONCE IV Last administered on 03/05/20at 13:13; Start 03/05/20 at 12:45; Stop 03/05/20 at 12:46; Status DC Ondansetron HCl (Zofran) 4 mg PRN Q4HRS PRN IV NAUSEA/VOMITING; Start 03/05/20 at 13:00 Zolpidem Tartrate (Ambien) 5 mg PRN QHS PRN PO INSOMNIA; Start 03/05/20 at 13:00 Acetaminophen (Tylenol) 650 mg PRN Q4HRS PRN PO TEMP OVER 100.4F OR MILD PAIN; Start 03/05/20 at 13:00 Docusate Sodium (Colace) 100 mg PRN BID PRN PO HARD STOOLS; Start 03/05/20 at 13:00 Albuterol Sulfate (Ventolin Neb Soln) 2.5 mg PRN Q4HRS PRN NEB SHORTNESS OF BREATH; Start 03/05/20 at 13:00 Guaifenesin (Robitussin) 200 mg PRN Q4HRS PRN PO COUGH; Start 03/05/20 at 13:00 Lorazepam (Ativan) 0.5 mg PRN Q4HRS PRN PO ANXIETY / AGITATION; Start 03/05/20 at 13:00 Acetaminophen (Tylenol) 650 mg PRN Q6HRS PRN PO MILD PAIN 1-3; Start 03/05/20 at 13:00 Aspirin (Alma Delia Aspirin) 325 mg DAILY PO ; Start 03/06/20 at 09:00; Stop 03/06/20 at 11:25; Status DC Hydrochlorothiazide (Hydrodiuril) 25 mg DAILY PO Last administered on 03/06/20at 08:29; Start 03/06/20 at 09:00 Lisinopril (Prinivil) 10 mg DAILY PO ; Start 03/06/20 at 09:00; Stop 03/06/20 at 11:25; Status DC Ondansetron HCl (Zofran) 4 mg PRN Q8HRS PRN IV NAUSEA/VOMITING; Start 03/05/20 at 13:15; Stop 03/06/20 at 13:14; Status DC Morphine Sulfate (Morphine Sulfate) 2 mg PRN Q2HR PRN IV PAIN; Start 03/05/20 at 13:15; Stop 03/06/20 at 13:14; Status DC Apixaban (Eliquis) 10 mg BID PO Last administered on 03/06/20at 08:33; Start 03/05/20 at 21:00; Stop 03/12/20 at 09:01 Apixaban (Eliquis) 5 mg BID PO ; Start 03/12/20 at 21:00 Aspirin (Aspirin Chewable) 81 mg DAILY PO Last administered on 03/06/20at 12:17; Start 03/06/20 at 11:30 Losartan Potassium (Cozaar) 50 mg DAILY PO Last administered on 7/23/20at 12:17; Start 03/06/20 at 11:30 Active Scripts Active Eliquis (Apixaban) 5 Mg Tablet 5 Mg PO BID 30 Days Reported Children's Aspirin (Aspirin) 81 Mg Tab.chew 1 Tab PO DAILY 30 Days Losartan Potassium 50 Mg Tablet 50 Mg PO DAILY Hydrochlorothiazide Tablet (Hydrochlorothiazide) 25 Mg Tablet 1 Tab PO DAILY Indication: blood pressure Next dose: 08/10/14 am Tylenol (Acetaminophen) 325 Mg Tablet 650 Mg PO PRN Allergies Allergies: Coded Allergies: codeine (Verified Allergy, Intermediate, "sweats and shakes", 08/08/14) ROS General: No: Chills, Night Sweats PSYCHOLOGICAL ROS: No: Anxiety, Behavioral Disorder Eyes: No Blurry vision, No Decreased vision HEENT: No: Heacaches, Visual Changes Hematological and Lymphatic: YES: Blood Clots; No: Bleeding Problems ENDOCRINE: No: Breast Changes, Galactorrhea Breast: No New/Changing Breast Lumps Respiratory: No: Cough, Hemoptysis Cardiovascular: No Chest Pain, No Palpitations Gastrointestinal: No Nausea, No Vomiting, No Abdominal Pain, No Constipation, No Melena, No Hematochezia Genitourinary: No Dysuria, No Frequency Musculoskeletal: No Gait Disturbance, No Joint Pain Neurological: No Behavorial Changes, No Bowel/Bladder ControlChng Skin: No Rash Physical Exam General: Alert, Oriented X3, Cooperative HEENT: Atraumatic, PERRLA Lungs: Clear to auscultation Heart: Regular rate Abdomen: Normal bowel sounds, Soft, No tenderness, No hepatosplenomegaly Extremities: No clubbing, No cyanosis Skin: No rashes Neuro: Normal gait, Normal speech Psych/Mental Status: Mental status NL MUSCULOSKELETAL: No joint tenderness Vitals VITALS Vital Signs Date Time Temp Pulse Resp B/P (MAP) Pulse Ox O2 Delivery O2 Flow Rate FiO2 03/06/20 15:07 98.6 70 17 116/57 (76) 100 Room Air 98.6 Labs Labs Laboratory Tests Test 03/05/20 11:11 03/06/20 07:48 White Blood Count 9.0 x10^3/uL (4.0-11.0) Red Blood Count 4.31 x10^6/uL (3.50-5.40) Hemoglobin 13.5 g/dL (12.0-15.5) Hematocrit 39.7 % (36.0-47.0) Mean Corpuscular Volume 92 fL (79-100) Mean Corpuscular Hemoglobin 31 pg (25-35) Mean Corpuscular Hemoglobin Concent 34 g/dL (31-37) Red Cell Distribution Width 12.6 % (11.5-14.5) Platelet Count 159 x10^3/uL (140-400) Neutrophils (%) (Auto) 77 % (31-73) Lymphocytes (%) (Auto) 13 % (24-48) Monocytes (%) (Auto) 9 % (0-9) Eosinophils (%) (Auto) 1 % (0-3) Basophils (%) (Auto) 1 % (0-3) Neutrophils # (Auto) 6.9 x10^3/uL (1.8-7.7) Lymphocytes # (Auto) 1.2 x10^3/uL (1.0-4.8) Monocytes # (Auto) 0.8 x10^3/uL (0.0-1.1) Eosinophils # (Auto) 0.1 x10^3/uL (0.0-0.7) Basophils # (Auto) 0.0 x10^3/uL (0.0-0.2) Prothrombin Time 13.2 SEC (11.7-14.0) Prothromb Time International Ratio 1.0 (0.8-1.1) Activated Partial Thromboplast Time 26 SEC (24-38) Sodium Level 135 mmol/L (136-145) Potassium Level 3.9 mmol/L (3.5-5.1) Chloride Level 98 mmol/L (98-107) Carbon Dioxide Level 30 mmol/L (21-32) Anion Gap 7 (6-14) Blood Urea Nitrogen 26 mg/dL (7-20) Creatinine 1.5 mg/dL (0.6-1.0) Estimated GFR (Cockcroft-Gault) 39.9 BUN/Creatinine Ratio 17 (6-20) Glucose Level 101 mg/dL (70-99) Calcium Level 9.3 mg/dL (8.5-10.1) Total Bilirubin 0.7 mg/dL (0.2-1.0) Aspartate Amino Transf (AST/SGOT) 17 U/L (15-37) Alanine Aminotransferase (ALT/SGPT) 21 U/L (14-59) Alkaline Phosphatase 53 U/L (46-116) Total Protein 7.8 g/dL (6.4-8.2) Albumin 3.6 g/dL (3.4-5.0) Albumin/Globulin Ratio 0.9 (1.0-1.7) Glucose (Fingerstick) 93 mg/dL (70-99) Laboratory Tests Test 03/06/20 07:48 Glucose (Fingerstick) 93 mg/dL (70-99) Images Images Reviewed results of ultrasound Doppler of lower extremities Assessment/Plan Assessment/Plan Assessment: DVT of lower extremity, left, unprovoked Hypertension Recommendations: -She has no antecedent history suggesting that this is a provoked DVT -Given unprovoked first deep vein thrombosis, would recommend 3 months of therapeutic anticoagulation -No additional evaluation is indicated at this time for hypercoagulable syndromes -Would recommend that she complete updated cancer screening including ma mmography and colonoscopy in view of this new unprovoked thrombosis -Follow-up in hematology oncology clinic as needed. Patient was given information for my office. Jose Wilkinson MD Medical Oncology/Hematology Ph: [phone] DAMIAN WILKINSON MD Mar 06, 2020 16:57
--- NOTE | 2020-03-06 18:23 | NUR ---
Discharge Note: Patient was discharged home with self care. Patients IV was discontinued without any complications per [facility]/ DEPUTY. Patient was given discharge summary/instructions, follow-ups, and educational material. Patient did not have any further questions or concerns. Patient was taken down to the main entrance via wheelchair with all personal belongings accompanied by ISABELA Delgado and daughter.
[2020-03-12] MEDS ORDERED: APIXABAN 5 MG TABLET. PO SCH (21:00)
== END 2020-03-06 18:26 | disposition home or self-care (01) | DRG 300 ==
LOC: ER 09:26 → ED HOLD 12:50 → 5 NORTH 12:57
PROVIDERS: ADMIT Internal Medicine; ATTEND Internal Medicine
DX: I82.412 Acute embolism and thrombosis of left femoral vein (principal); E87.1 Hypo-osmolality and hyponatremia; E66.9 Obesity, unspecified; I12.9 Hypertensive chronic kidney disease with stage 1 through stage 4 chronic kidney disease, or unspecified chronic kidney disease; N18.3 Chronic kidney disease, stage 3 (moderate); I82.432 Acute embolism and thrombosis of left popliteal vein; I82.492 Acute embolism and thrombosis of other specified deep vein of left lower extremity; Z86.73 Personal history of transient ischemic attack (TIA), and cerebral infarction without residual deficits; Z87.891 Personal history of nicotine dependence; Z98.51 Tubal ligation status; Z88.5 Allergy status to narcotic agent; Z68.29 Body mass index [BMI] 29.0-29.9, adult
CPT/HCPCS: 36415; 71045; 78580; 80053; 82962; 85025; 85610; 85730; 93971; 96361; 96374; 99285; A9540; J1650; J2270; G0378

== ENCOUNTER → 2020-12-04 | Outpatient (CLI) | payer MEDICARE ==
[~2020-12-04] MED LIST changes: +APIX5TAB PO; +ASPI81TA59 PO; +LISI10TA16 PO; -LISI10TA2 PO; +LOSA50TA15 PO
--- NOTE | 2020-12-04 17:52 | CARD ---
MR#: [id number] Date of Study: 12/04/2020 Ordering Physician: ALEXIS KEYS, Referring Physician: ALEXIS KEYS, Tech: Hortencia Degroot [facility] APPROVED REPORT EXAM: Two-dimensional and M-mode echocardiogram with Doppler and color Doppler. Other Information Quality : Technically LimitedAverageHR: 80bpm Rhythm : NSR INDICATION Hypertension/HCVD RISK FACTORS Hypertension Obesity Hyperlipidemia 2D DIMENSIONS RVDd2.7 (2.9-3.5cm)Left Atrium(2D)3.5 (1.6-4.0cm) IVSd0.9 (0.7-1.1cm)Aortic Root(2D)2.9 (2.0-3.7cm) LVDd4.4 (3.9-5.9cm)LVOT Diameter2.0 (1.8-2.4cm) PWd0.9 (0.7-1.1cm)LVDs2.2 (2.5-4.0cm) FS (%) 50.2 %SV72.5 ml LVEF(%)81.7 (>50%) Aortic Valve AoV [place].146.7cm/sAoV VTI34.0cm AO Peak GR.8.6mmHgLVOT [place].102.4cm/s AO Mean GR.4mmHgAVA (VMAX)2.14cm2 Mitral Valve MV E Cldxuovp96.8cm/sMV DECEL [id number] MV A Avisnqyi565.4cm/sE/A Ratio0.7 Tricuspid Valve TR P. Btvrftpf703ek/sTR Peak Gr.24mmHg LEFT VENTRICLE The left ventricle is normal size. There is normal left ventricular wall thickness. The left ventricu lar systolic function is normal and the ejection fraction is within normal range. Estimated ejection 55-60%. There is normal LV segmental wall motion. Tissue Doppler imaging reveals mild left ventricula r diastolic dysfunction. No left ventricle thrombus noted on this study. RIGHT VENTRICLE The right ventricle is normal size. There is normal right ventricular wall thickness. The right ventr icular systolic function is normal. ATRIA The left atrium size is normal. The right atrium size is normal. The interatrial septum is intact wit h no evidence for an atrial septal defect or patent foramen ovale as noted on 2-D or Doppler imaging. AORTIC VALVE The aortic valve is normal in structure and function. Doppler and Color Flow revealed no significant aortic regurgitation. There is no significant aortic valvular stenosis. MITRAL VALVE The mitral valve is normal in structure and function. There is no evidence of mitral valve prolapse. There is no mitral valve stenosis. Doppler and Color-flow revealed trace mitral regurgitation. TRICUSPID VALVE The tricuspid valve is normal in structure and function. Doppler and Color Flow revealed trace tricus pid regurgitation. Estimated PAP 21 mmHg. There is no tricuspid valve stenosis. PULMONIC VALVE Doppler and Color Flow revealed no pulmonic valvular regurgitation. There is no pulmonic valvular isi nosis. GREAT VESSELS The aortic root is normal in size. The ascending aorta is normal in size. The IVC is normal in size a nd collapses >50% with inspiration. PERICARDIAL EFFUSION There is no evidence of significant pericardial effusion. Critical Notification Critical Value: No <Conclusion> The left ventricular systolic function is normal and the ejection fraction is within normal range. E stimated ejection 55-60%. There is normal LV segmental wall motion. Signed by : Raji Franz, Electronically Approved : 12/04/2020 17:51:41
== END ==
LOC: ECHO 13:18
PROVIDERS: ATTEND Internal Medicine Cardiovascular Disease
DX: R01.1 Cardiac murmur, unspecified (principal)
CPT/HCPCS: 93306

== ENCOUNTER 2021-09-19 15:29 | Emergency (ER) | payer MEDICARE, MEDICAID ==
[~2021-09-19] VITALS: Ht 149.9 cm; Wt 80.0 kg
--- NOTE | 2021-09-19 16:03 | PHYS DOC ---
Past Medical History Past Medical History: Hypertension, TIA Past Surgical History: Tubal ligation Smoking Status: Never Smoker Alcohol Use: None Drug Use: None General Adult EDM: Chief Complaint: BREAST PROBLEM HPI: HPI: Patient is an 85-year-old female who presents to the emergency department for left breast pain, redness, warmth and swelling that started 1 week ago. Patient states that the pain is soreness and she rates it 5 out of 10. She has been taking Tylenol at home with little relief. Patient denies fevers, nipple discharge, lumps, wounds, injury, nausea, vomiting, body aches. She reports that she has never had these symptoms before. Review of Systems: Review of Systems: Constitutional: negative unless reported in HPI Eyes: negative unless reported in HPI HENT: negative unless reported in HPI Respiratory: negative unless reported in HPI Cardiovascular: negative unless reported in HPI GI: negative unless reported in HPI : negative unless reported in HPI Musculoskeletal: negative unless reported in HPI Integument: negative unless reported in HPI Neurologic: negative unless reported in HPI Endocrine: negative unless reported in HPI Lymphatic: negative unless reported in HPI Psychiatric: negative unless reported in HPI Heart Score: C/O Chest Pain: N/A Risk Factors: Risk Factors: DM, Current or recent (<one month) smoker, HTN, HLP, family history of CAD, obesity. Risk Scores: Score 0 - 3: 2.5% MACE over next 6 weeks - Discharge Home Score 4 - 6: 20.3% MACE over next 6 weeks - Admit for Clinical Observation Score 7 - 10: 72.7% MACE over next 6 weeks - Early Invasive Strategies Allergies: Allergies: Allergies Coded Allergies Type Severity Reaction Last Updated Verified codeine Allergy Intermediate "sweats and shakes" 09/19/21 Yes Physical Exam: PE: Constitutional: Well developed, well nourished, no acute distress, non-toxic appearance. [] HENT: Normocephalic, atraumatic, bilateral external ears normal, oropharynx moist, no oral exudates, nose normal. [] Eyes: PERRL, EOMI, conjunctiva normal, no discharge. [] Neck: Normal range of motion, no tenderness, supple, no stridor. [] Cardiovascular:Heart rate tachycardic rhythm, no murmur [] Lungs & Thorax: Bilateral breath sounds clear to auscultation [] Abdomen: Bowel sounds normal, soft, no tenderness, no masses, no pulsatile masses. [] Skin: Warm, dry, no erythema, no rash. [] Breast: Left breast is erythematous, warm with edema. Nipple is inverted and there is dumpling and. [place] appearance of breast, there is breast asymmetry, pain with palpation of breast, no palpable masses or lumps Back: Normal range of motion Extremities: No tenderness, no cyanosis, no clubbing, ROM intact, no edema. [] Neurologic: Alert and oriented X 3, normal motor function, normal sensory function, no focal deficits noted. [] Psychologic: Affect normal, judgement normal, mood normal. [] Current Patient Data: Labs: Laboratory Tests Test 09/19/21 16:00 White Blood Count 12.6 x10^3/uL Red Blood Count 3.95 x10^6/uL Hemoglobin 11.9 g/dL Hematocrit 36.2 % Mean Corpuscular Volume 92 fL Mean Corpuscular Hemoglobin 30 pg Mean Corpuscular Hemoglobin Concent 33 g/dL Red Cell Distribution Width 13.9 % Platelet Count 220 x10^3/uL Neutrophils (%) (Auto) 84 % Lymphocytes (%) (Auto) 9 % Monocytes (%) (Auto) 7 % Eosinophils (%) (Auto) 0 % Basophils (%) (Auto) 0 % Neutrophils # (Auto) 10.7 x10^3/uL Lymphocytes # (Auto) 1.1 x10^3/uL Monocytes # (Auto) 0.8 x10^3/uL Eosinophils # (Auto) 0.1 x10^3/uL Basophils # (Auto) 0.0 x10^3/uL Sodium Level 136 mmol/L Potassium Level 3.5 mmol/L Chloride Level 102 mmol/L Carbon Dioxide Level 26 mmol/L Anion Gap 8 Blood Urea Nitrogen 37 mg/dL Creatinine 1.6 mg/dL Estimated GFR (Cockcroft-Gault) 37.0 BUN/Creatinine Ratio 23 Glucose Level 116 mg/dL Calcium Level 8.3 mg/dL Total Bilirubin 0.2 mg/dL Aspartate Amino Transf (AST/SGOT) 14 U/L Alanine Aminotransferase (ALT/SGPT) 18 U/L Alkaline Phosphatase 49 U/L Total Protein 7.6 g/dL Albumin 3.0 g/dL Albumin/Globulin Ratio 0.7 Current Medications Medications (Trade) Dose Ordered Sig/Robbie Route PRN Reason Start Time Stop Time Status Last Admin Dose Admin Acetaminophen (Tylenol) 650 mg 1X ONCE PO 09/19/21 19:15 09/19/21 19:16 DC 09/19/21 19:23 Vital Signs: Vital Signs Date Time Temp Pulse Resp B/P (MAP) Pulse Ox O2 Delivery O2 Flow Rate FiO2 09/19/21 15:30 98.8 106 14 159/79 (105) 98 Room Air 98.8 EKG: EKG: [] Radiology/Procedures: Radiology/Procedures: []PROCEDURE: BREAST LEFT Exam: Ultrasound left breast Indication: Red warm swelling Technique: Real-time grayscale and color Doppler images of the left were obtained by the department surgical processor. Comparisons: None FINDINGS: Limited evaluation secondary to technical factors. In the left upper quadrant of the breast there is a ill-defined hypoechoic area which measures approximately 3.2 x 1.2 x 3.2 cm. Mildly enlarged left axillary lymph nodes are noted. IMPRESSION: 1. Ill-defined hypoechoic masslike area in the left upper quadrant measuring 3.2 x 1.2 x 3.2 cm. Findings are concerning for malignancy. Recommend referral to breast surgeon for further evaluation. 2. Abnormal appearing left axillary lymph node. FOR INTERNAL CODING PURPOSES Critical result: Findings discussed with DUYEN CABRERA APRN at 09/19/2021 8:29 PM. RESULT CODE: (C) Electronically signed by: Shahrzad Dc MD (09/19/2021 8:30 PM) [facility] DICTATED and SIGNED BY: SHAHRZAD DC MD DATE: 09/19/[id number] 0 Course & Med Decision Making: Course & Med Decision Making Pertinent Labs and Imaging studies reviewed. (See chart for details) [] Patient presents to the emergency department for left breast redness/warmth/swelling and pain that started 1 week ago. Ultrasound was performed to rule out abscess as well as blood work. Patient was noted to have mild leukocytosis with a white blood cell count of 12.6. Creatinine was 1.6 but this is consistent with her previous findings. 1944: I am still awaiting the ultrasound of patient's left breast. The cardiopulmonary technician was notified of the order that is pending. Per nursing staff cardiopulmonary technician was refusing to do the ultrasound because she said that they do not do ultrasounds of breasts in the emergency department. I contacted the cardiopulmonary technician and notified her that the order needed to be performed to rule out a breast abscess. The cardiopulmonary technician did finally agree to come over to do the ultrasound. I was notified by nursing staff that patient's family is upset over their wait time. I spoke with patient and her family and notified them of the reasonings for the delay in care and I apologized to them. Patient was provided pain medication in the emergency department. 2030: Ultrasound of patient's breast shows a infiltrating mass in the left upper quadrant measuring 3.2 x 1.2 x 3.2 cm with abnormal lymph nodes. Patient was discharged home with an antibiotic. She was given a printout of her ultrasound report. She was referred to a local breast surgeon. She is advised to follow- up with her primary care provider on Tuesday. I discussed with patient all findings and diagnostic testing as well as the need to follow-up with PCP for further evaluation and treatment or return to the ER if any new or worsening symptoms. Strict return precautions were also discussed at length. Patient voiced understanding and agreement with the plan. Patient is hemodynamically stable at the time of disposition. Dragon Disclaimer: Dragon Disclaimer: This electronic medical record was generated, in whole or in part, using a voice recognition dictation system. Departure Departure Impression: Primary Impression: Breast mass Qualified Codes: N63.23 - Unspecified lump in the left breast, lower outer quadrant Disposition: HOME / SELF CARE / HOMELESS Condition: GOOD Referrals: WISAM MENDOZA MD (PCP) Patient Instructions: Breast Cancer, What You Should Know, Breast Cyst Additional Instructions: You were seen in the emergency department today for left breast pain, redness, warmth and swelling. The ultrasound does show a likely infiltrating mass in the left upper quadrant of your breast with abnormal lymph node. You were given a printout of the ultrasound report. You need to follow-up with your primary care provider on Tuesday regarding these findings. You will need to follow-up with a breast surgeon. You can contact [facility] in [place] [facility] by contacting them at [phone]. You can also contact your primary care provider and ask them if they have a breast surgeon that they would like you to follow-up with. Return to the emergency department if you develop worsening of your redness/warmth/swelling, increased pain, high fevers refractory to treatment, intractable nausea or vomiting, shortness of breath, chest pain, severe weakness or lethargy. DUYEN CABRERA APRN Sep 19, 2021 16:03
[2021-09-19 16:14] LABS: BASO % 0 % (0-3); EOS # 0.1 x10^3/uL (0.0-0.7); EOS % 0 % (0-3); HEMATOCRIT 36.2 % (36.0-47.0); HEMOGLOBIN 11.9 g/dL (12.0-15.5); LYMPH # 1.1 x10^3/uL (1.0-4.8); LYMPH % 9 % (24-48); MEAN CORPUSCULAR HEMOGLOBIN 30 pg (25-35); MEAN CORPUSCULAR HGB CONC 33 g/dL (31-37); MEAN CORPUSCULAR VOLUME 92 fL (79-100); MONO # 0.8 x10^3/uL (0.0-1.1); MONO % 7 % (0-9); NEUT # 10.7 x10^3/uL (1.8-7.7); NEUT % 84 % (31-73); PLATELET COUNT 220 x10^3/uL (140-400); RED BLOOD COUNT 3.95 x10^6/uL (3.50-5.40); RED CELL DISTRIBUTION WIDTH 13.9 % (11.5-14.5); WHITE BLOOD COUNT 12.6 x10^3/uL (4.0-11.0)
[2021-09-19 16:22] LABS: CALCIUM 8.3 mg/dL (8.5-10.1); CREATININE 1.6 mg/dL (0.6-1.0); POTASSIUM 3.5 mmol/L (3.5-5.1)
[2021-09-19 16:29] LABS: ALBUMIN/GLOBULIN RATIO 0.7 (1.0-1.7); TOTAL BILIRUBIN 0.2 mg/dL (0.2-1.0); TOTAL PROTEIN 7.6 g/dL (6.4-8.2)
[2021-09-19 17:48] VITALS: BP 161/68
[2021-09-19] MEDS ORDERED: ACETAMINOPHEN 325 MG TABLET. PO ONE (19:15)
--- NOTE | 2021-09-19 20:32 | RAD ---
Exam: Ultrasound left breast Indication: Red warm swelling Technique: Real-time grayscale and color Doppler images of the left were obtained by the department s onographer. Comparisons: None FINDINGS: Limited evaluation secondary to technical factors. In the left upper quadrant of the breast there is a ill-defined hypoechoic area which measures approx imately 3.2 x 1.2 x 3.2 cm. Mildly enlarged left axillary lymph nodes are noted. IMPRESSION: 1. Ill-defined hypoechoic masslike area in the left upper quadrant measuring 3.2 x 1.2 x 3.2 cm. Fin dings are concerning for malignancy. Recommend referral to breast surgeon for further evaluation. 2. Abnormal appearing left axillary lymph node. FOR INTERNAL CODING PURPOSES Critical result: Findings discussed with DUYEN CABRERA APRN at 09/19/2021 8:29 PM. RESULT CODE: (C) Electronically signed by: Shahrzad Ocampo MD (09/19/2021 8:30 PM) SHERRY
== END 2021-09-19 21:00 | disposition home or self-care (01) ==
LOC: ER 15:29
DX: N64.4 Mastodynia (principal); Z86.73 Personal history of transient ischemic attack (TIA), and cerebral infarction without residual deficits; I10 Essential (primary) hypertension
CPT/HCPCS: 36415; 76641; 80053; 85025; 99284-25

== ENCOUNTER → 2021-09-28 | Outpatient (CLI) | payer MEDICAID, MEDICARE ==
[2021-09-19 17:48] VITALS: BP 161/68
[~2021-09-28] MED LIST changes: +HYDR-2761 PO
--- NOTE | 2021-09-28 09:32 | RAD ---
EXAM: Bilateral digital diagnostic mammogram with tomosynthesis; left breast sonogram. HISTORY: 85-year-old female presents with left breast pain and enlargement and evaluation of a left b reast mass demonstrated on a sonogram performed during a visit to the emergency department on 2. TECHNIQUE: Full-field digital craniocaudal and mediolateral oblique 2D and 3D tomosynthesis images of both breasts are obtained for evaluation. Computer aided detection was applied. Sonographic imaging of the left breast and axilla was also performed. COMPARISON: 09/19/2021, 08/01/2019, 10/26/2018, 05/07/2015 BREAST PARENCHYMAL DENSITY: Level B - Scattered fibroglandular densities. FINDINGS: There is a large irregular mass occupying a large portion of the right breast parenchyma. T his measures at least 11 cm in maximum dimension and contains mobile suspicious calcifications. There is left nipple retraction. There is left axillary lymphadenopathy. There are multiple stable circumscribed nodules within the right breast, consistent with previously d emonstrated suspected cysts and fibrocystic or fibroadenomatoid lesions on prior sonograms. The nearl y 3 year course of stability of these findings favors benignity. There has been minimal interval incr ease in a nodule within the right upper outer quadrant, consistent with a lymph node. The minimal int erval changeover operator a 3 mm interval favors benignity. There is no suspicious right breast calcification or architectural distortion. Sonographic imaging of the left breast demonstrates a large irregular mass centered at the 1:00 posit ion approximately 5 cm from nipple measuring 5.1 cm in maximum dimension. There are multiple surround ing satellite lesions, the largest of which measure 1.6 cm at the 4:00 position 5 cm from the nipple, 1.7 cm at the 5:00 position 6 cm from the nipple, and 2.6 cm at the 5:00 position 6 cm from the nipp le. There are multiple additional smaller areas of lesion infiltration throughout the left breast. Th ere are pathologically enlarged axillary lymph nodes with thickened cortices, the largest of which me asures 1.9 cm in long axis. IMPRESSION: 1. Suspicious infiltrated mass with multiple surrounding satellite lesions occupying the majority of the left breast and left axillary lymphadenopathy, the appearance of which favors metastatic breast c ancer. Sonographic and biopsy of the main portion of the mass and most suspicious axillary lymph node can be performed for definitive diagnosis. 2. No new suspicious finding involving the right breast. 3. BI-RADS Category 5: Highly suggestive of malignancy. Sonographic guided tissue sampling can be per formed for definitive diagnosis. These findings and recommendations were discussed with the patient and could indicate to the biomedical equipment technician of the referring physician at 1120 hours on 09/28/2021. If your mammogram demonstrates that you have dense breast tissue, which could hide abnormalities, and if you have other risk factors for breast cancer that have been identified, you might benefit from s upplemental screening tests that may be suggested by your ordering physician. Dense breast tissue, i n and of itself, is a relatively common condition. This information is not provided to cause undue c oncern, but rather to raise your awareness and to promote discussion with your physician regarding th e presence of other risk factors, in addition to dense breast tissue. A report of your mammography re sults will be sent to you and your physician. You should contact your physician if you have any ques tions or concerns regarding this report. Mammography is a sensitive method for finding small breast cancers, but it does not detect them all a nd is not a substitute for careful clinical examination. A negative mammogram does not negate a clin ically suspicious finding and should not result in delay in biopsying a clinically suspicious abnorma lity. PQRS compliance statement - Patient information was entered into a reminder system with a target due date for the next mammogram. "Our facility is accredited by the [employer] Mammography [employer]." Electronically signed by: Verónica Morales MD (09/28/2021 9:30 AM) [id number]
== END ==
LOC: US 08:30
PROVIDERS: ATTEND Family Medicine
DX: N63.21 Unspecified lump in the left breast, upper outer quadrant (principal); N63.11 Unspecified lump in the right breast, upper outer quadrant; R59.0 Localized enlarged lymph nodes; N64.89 Other specified disorders of breast
CPT/HCPCS: 76641; 77066

== ENCOUNTER → 2021-10-05 | Outpatient (CLI) | payer MEDICARE ==
[2021-09-19 17:48] VITALS: BP 161/68
[~2021-10-05] MED LIST changes: +LIDOCAINE 1% Multi-Dose 20 ML VIAL. INJ ONE
--- NOTE | 2021-10-05 13:17 | RAD ---
EXAM: Sonographic guided left breast biopsy; sonographic guided left axillary lymph node biopsy; left breast and axillary lymph node biopsy clip placement; left breast postbiopsy mammogram. HISTORY: 85-year-old female presents for sonographic guided biopsy of a large infiltrative mass withi n the left breast and a suspicious axillary lymph node demonstrated on prior imaging. TECHNIQUE: The risks of the procedure were discussed with the patient and written and verbal consent was obtained. A timeout was performed. Sonographic imaging of the right breast was performed, demonst rating multiple irregular contiguous masses. The main component of this mass is seen centrally at the 1:00 position. There are also enlarged axillary lymph nodes, the most suspicious of which demonstrat e cortical thickening and measures 1.4 cm in long axis. The skin overlying both areas was sterilely p repped, draped and infiltrated with 1 percent lidocaine. Multiple core samples were obtained through the breast mass and the axillary lymph node of concern and biopsy clips were advanced with sonographi c guidance. A post biopsy mammogram demonstrates the left breast biopsy clip in expected position. Th is is within the mass occupying the majority of the left breast and containing multiple pleomorphic c alcifications. The axillary clip is excluded from the [id number]. The patient tolerated the proced ure without immediate complication. IMPRESSION: Sonographic guided biopsy of an infiltrative mass within the left breast and a suspicious axillary lymph node. An addendum to this report will be submitted when pathology results are availab le. Electronically signed by: Verónica Morales MD (10/05/2021 1:15 PM) [id number]
--- NOTE | 2021-10-08 18:06 | PATHOLOGY ---
[facility] Accession Number: [id number] . 01 Material submitted: . PART A: breast - LEFT BREAST 1 O'CLOCK 5CMFN 5.1 CM. Modifiers: left PART B: lymph node - LEFT AXILLARY LYMPH NODE 1.5 CM. Modifiers: left, axilla . 02 Diagnosis: A. 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 . B. 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 . (MELISSA:jade; 10/08/2021) . . . CASE SUMMARY: (DCIS OF THE BREAST: Biopsy) . SPECIMEN . Procedure ___ Needle biopsy Specimen Laterality ___ Left . TUMOR . +Tumor Site ___ Clock position Specify Clock Position ___ 1 o'clock Histologic Type ___ Ductal carcinoma in situ (DCIS) +Architectural Pattern ___ Comedo Nuclear Grade ___ Grade III (high) Necrosis ___ Present, central (expansive "comedo" necrosis) +Microcalcifications ___ Not identified . COMMENT: ___ Metastatic deposit, lymph node referred for biomarker studies. . (MELISSA:azucena; 10/08/2021) . . . . . . . . . . . . . . . . . (MELISSA:azucena; 10/08/2021) [facility] 10/08/2021 1446 Local . 02 Comment: The full length of the cores of the left breast biopsy show dense stroma with multiple foci of high-grade ductal carcinoma in situ of a comedo type with extensive central necrosis. On the tip of the core in block A1, there is a focus highly suspicious for stromal invasion although it is on the edge of the core. For that reason, we undertook p63 and myosin on block A1. Results: . P63 on block A1: Positive in areas of DCIS, negative in areas suspicious for early stromal invasion. Myosin on block A1: Positive in areas of DCIS, negative in areas suspicious for early stromal invasion. . These impressions are telephoned to Dr. Clark on 10/08/2021 at approximately 1:00 in the afternoon. This case is seen in consultation with Dr. Joseph Grimes on 10/08/2021 who agrees with this diagnosis. . Breast tumor markers will be performed on block B1, the area of metastatic focus to lymph node. The results of these will be the subject of an addendum report. . (SWK:jade; 10/08/2021) . 02 Electronically signed: . Oliver Barrios MD, Pathologist NPI- [id number] . 01 Gross description: . A. The specimen is received in formalin, labeled "Bekah Holman, left breast". The specimen is additionally labeled on the requisition as, "left breast 1 o'clock 5 cm, 5.1 cm". Received are 3, ye-white to yellow, soft tissue needle core biopsies, ranging in length from 1.5-1.7 cm and, measuring 0.2 cm in diameter. The specimen is entirely submitted in cassettes A1-A3. . The specimen is removed from the patient at 1239 and placed in formalin at 1239 on 10/05/2021. The specimen is removed from formalin at 2140 on 10/05/2021. The specimen is in formalin for greater than 6 hours and less than 72 hours. . B. The specimen is received in formalin, labeled "Bekah Holman, left axilla". The specimen is additionally labeled on the requisition as, "left axillary lymph node 1.5 cm". Received are 3, ye-white to yellow, soft tissue needle core biopsies, ranging in length from 1.2-1.4 cm, and measuring 0.2 cm in diameter. The specimen is entirely submitted in cassette B1-B3. . The specimen is removed from the patient at 1246 and placed in formalin at 1246 on 10/05/2021. The specimen is removed from formalin at 2140 on 10/05/2021. The specimen is in formalin for greater than 6 hours and less than 72 hours. (JGG; 10/05/2021) JGG/JGG 10/06/2021 1225 [facility] . Pathologist provided ICD-10: D05.12, C77.3 . 02 CPT . 289380, 490941, D17259, [id number] Specimen Comment: A courtesy copy of this report has been sent to [phone] Specimen Comment: [id number], Specimen Comment: Report sent to , DR MENDOZA / DR CLARK Specimen Comment: A duplicate report has been generated due to demographic updates. Performed at: 01 [facility] [address] [id number] MD Joseph Grimes MD Phone: [phone] Performed at: 02 [facility] [address] [id number] MD Oliver Barrios MD Phone: [phone]
== END | disposition home or self-care (01) ==
LOC: MAMMO 12:30
PROVIDERS: ATTEND Surgery
DX: N63.21 Unspecified lump in the left breast, upper outer quadrant (principal); R92.8 Other abnormal and inconclusive findings on diagnostic imaging of breast; D05.12 Intraductal carcinoma in situ of left breast; C77.3 Secondary and unspecified malignant neoplasm of axilla and upper limb lymph nodes; I10 Essential (primary) hypertension; E66.9 Obesity, unspecified; Z86.73 Personal history of transient ischemic attack (TIA), and cerebral infarction without residual deficits; Z98.51 Tubal ligation status; Z98.890 Other specified postprocedural states; Z79.82 Long term (current) use of aspirin; Z79.899 Other long term (current) drug therapy; Z88.5 Allergy status to narcotic agent
CPT/HCPCS: 19083; 38505; 77065; 88305; 88341; 88342; 88361; A4648; C1819; 19084

== ENCOUNTER 2021-10-22 08:48 | Day surgery (SDC) | payer MEDICAID, MEDICARE ==
[~2021-10-22] VITALS: Ht 153.7 cm; Wt 80.0 kg
[~2021-10-22 08:48] MED LIST changes: +BUPIVACAINE-EPI 0.25%-1:200000 MPF 30 ML VIAL. ONE; +HEPARIN PF 500 UNIT/5 ML DISP.SYRIN. IVP ONE; -HYDR-2761 PO; +HYDROmorphone 2 MG/ML INJ. IVP PRN; +IV RINGERS,LACTATED 1000ML 1,000 ML IV SCH; -LIDOCAINE 1% Multi-Dose 20 ML VIAL. INJ ONE; +MORPHINE SULFATE 2 MG/ML INJ. IVP PRN; +PROCHLORPERAZINE 10 MG/2 ML VIAL. IVP PRN; +fentaNYL PF VIAL 100 MCG/2 ML VIAL IVP PRN
[2021-10-22] MEDS ORDERED: PROPOFOL 10 MG/ML (20ML) VIAL. IV ONE (09:33)
[2021-10-22] MEDS ORDERED: ONDANSETRON PF 4 MG/2 ML VIAL. ONE (09:33)
[2021-10-22] MEDS ORDERED: DEXAMETHASONE SOD PHOS 4 MG/ML VIAL ONE (09:34)
[2021-10-22] MEDS ORDERED: LIDOCAINE 1% PF 5 ML VIAL. ONE (09:34)
--- NOTE | 2021-10-22 12:34 | PDOC4 ---
Operative Note Operative Note Operative Note: Preoperative Diagnosis: Left breast cancer Postoperative Diagnosis: Same Procedure: Placement of Power Port-A-Cath using SonoSite guidance Surgeon: Bernard Anesthesia: Gen. EBL: 10 mL Specimen: None Drains: None Complications: None Indication: The patient is an 85-year-old female who was recently diagnosed with left breast cancer. A request was made for placement of a Port-A-Cath to allow for chemotherapy treatment. The details and risks of the procedure were discussed. The risks include bleeding, infection, vessel injury, pneumothorax, pain, anesthetic risk, port, catheter or tubing malfunction or dysfunction, potential need for additional surgery or procedure. The patient understands and would like to proceed. Description: The patient was placed supine on the operating table and general anesthesia was performed. The bilateral neck and chest were prepped with ChloraPrep and draped in a standard surgical manner. With SonoSite ultrasound guidance the right internal jugular vein was readily identified and appeared patent. Entry was made into the vein with the skinny introducer needle under ultrasound guidance. The skinny guidewire passed readily into the central venous system. A small incision was made at the skin exit site. The skinny sheath was then placed over the guidewire. The larger guidewire was then placed within the sheath into the central venous system. Intraoperative fluoroscopy confirmed good position of the guidewire in the central venous system. The dilator and sheath were then placed over the guidewire. The catheter portion was then inserted into the central venous system and visualized using fluoroscopy. A separate right upper chest skin incision was made with a scalpel. A subcutaneous pocket was developed with cautery of sufficient size to accommodate the port. The catheter was then tunneled subcutaneously to the level of the newly formed pocket. Using fluoroscopy the catheter was positioned with the tip in the distal superior vena cava. The catheter was then cut and assembled to the port. The port was then secured to the chest wall with two 2-0 Prolene sutures. Using the Borja needle the port readily aspirated and flushed without difficulty. Fluoroscopy confirmed good positioning of the catheter with no twists or kinks. The subcutaneous tissue was approximated with 3-0 Vicryl. The skin was then closed with 4-0 Monocryl. A sterile OpSite dressing was then applied. The patient tolerated the procedure well and was sent to the recovery room in stable condition. At the end of the case all counts were correct. TERRELL CLARK MD Oct 22, 2021 12:34
[2021-10-22] MEDS ORDERED: HYDR-2761 PO (12:36)
--- NOTE | 2021-10-22 12:37 | DISCH ---
DISCHARGE INSTRUCTIONS Condition on Discharge Condition on Discharge: Stable Activity After Discharge Activity Instructions for Disc: Resume previous activity Diet after Discharge Diet after Discharge: Regular Wound Incision Care Wound/Incision Care: Other, see below (keep dressing clean and dry) Follow-Up Follow up with: Oncology per appointment TERRELL CLARK MD Oct 22, 2021 12:37
[2021-10-22 13:02] VITALS: BP 130/73
--- NOTE | 2021-10-22 13:17 | RAD ---
XR CHEST 1V Clinical Indication: Reason: portacath placement / Spl. Instructions: / History: Comparison: AP chest March 05, 2020. Findings: There is right chest Port-A-Cath, tip in distal SVC. The cardiomediastinal silhouette is stable. Ther e are calcified bilateral hilar lymph nodes. There is stable moderate elevation of right hemidiaphrag m. There is mild left basilar atelectasis or scarring. There is no pneumothorax. No pleural effusion is appreciated. There is arthropathy of the bilateral shoulders. IMPRESSION: 1. Right chest Port-A-Cath tip in distal SVC. 2. Mild left basilar atelectasis or scarring. Electronically signed by: Leroy Childs MD (10/22/2021 1:14 PM) [id number]
== END 2021-10-22 13:42 | disposition home or self-care (01) ==
LOC: SURG 08:48
PROVIDERS: ATTEND Surgery
DX: Z45.2 Encounter for adjustment and management of vascular access device (principal); C50.912 Malignant neoplasm of unspecified site of left female breast; I10 Essential (primary) hypertension; E66.9 Obesity, unspecified; Z86.73 Personal history of transient ischemic attack (TIA), and cerebral infarction without residual deficits; Z79.899 Other long term (current) drug therapy; Z98.890 Other specified postprocedural states; Z98.51 Tubal ligation status; Z79.82 Long term (current) use of aspirin; Z88.5 Allergy status to narcotic agent
CPT/HCPCS: 36561; 71045; 76937; 77001; A4364; A4930; A6254; A6258; C1788; J0690; J1100; J1642; J2405; J2704; J3490; 76000; A4452; A4657

== ENCOUNTER → 2021-10-28 | Outpatient (CLI) | payer MEDICARE ==
[2021-10-22 13:02] VITALS: BP 130/73
[~2021-10-28] MED LIST changes: -BUPIVACAINE-EPI 0.25%-1:200000 MPF 30 ML VIAL. ONE; -HEPARIN PF 500 UNIT/5 ML DISP.SYRIN. IVP ONE; +HYDR-2761 PO; -HYDROmorphone 2 MG/ML INJ. IVP PRN; -IV RINGERS,LACTATED 1000ML 1,000 ML IV SCH; -MORPHINE SULFATE 2 MG/ML INJ. IVP PRN; -PROCHLORPERAZINE 10 MG/2 ML VIAL. IVP PRN; -fentaNYL PF VIAL 100 MCG/2 ML VIAL IVP PRN
[2021-10-28 09:59] LABS: BASO % 1 % (0-3); EOS # 0.2 x10^3/uL (0.0-0.7); EOS % 2 % (0-3); HEMATOCRIT 35.8 % (36.0-47.0); HEMOGLOBIN 11.6 g/dL (12.0-15.5); LYMPH # 1.4 x10^3/uL (1.0-4.8); LYMPH % 19 % (24-48); MEAN CORPUSCULAR HEMOGLOBIN 30 pg (25-35); MEAN CORPUSCULAR HGB CONC 32 g/dL (31-37); MEAN CORPUSCULAR VOLUME 92 fL (79-100); MONO # 0.8 x10^3/uL (0.0-1.1); MONO % 11 % (0-9); NEUT # 5.1 x10^3/uL (1.8-7.7); NEUT % 67 % (31-73); PLATELET COUNT 252 x10^3/uL (140-400); RED CELL DISTRIBUTION WIDTH 13.7 % (11.5-14.5); WHITE BLOOD COUNT 7.5 x10^3/uL (4.0-11.0)
[2021-10-28 10:09] LABS: CALCIUM 9.1 mg/dL (8.5-10.1); CREATININE 1.1 mg/dL (0.6-1.0); POTASSIUM 3.7 mmol/L (3.5-5.1)
[2021-10-28 10:16] LABS: ALBUMIN 3.5 g/dL (3.4-5.0); ALBUMIN/GLOBULIN RATIO 0.9 (1.0-1.7); TOTAL BILIRUBIN 0.3 mg/dL (0.2-1.0); TOTAL PROTEIN 7.6 g/dL (6.4-8.2)
== END ==
LOC: ONCLAB 09:02
PROVIDERS: ATTEND Internal Medicine Hematology & Oncology
DX: C50.012 Malignant neoplasm of nipple and areola, left female breast (principal)
CPT/HCPCS: 36415; 80053; 85025

== ENCOUNTER → 2021-10-30 | Outpatient (CLI) | payer MEDICARE ==
[2021-10-22 13:02] VITALS: BP 130/73
--- NOTE | 2021-10-30 11:04 | CARD ---
MR#: [id number] Date of Study: 10/30/2021 Ordering Physician: DAMIAN WHITNEY, Referring Physician: DAMIAN WHITNEY, Tech: Hortencia Degroot [facility] APPROVED REPORT EXAM: Two-dimensional and M-mode echocardiogram with Doppler and color Doppler. Other Information Quality : GoodHR: 79bpm Rhythm : NSR INDICATION Hypertension/HCVD RISK FACTORS Hypertension Hyperlipidemia Diabetes 2D DIMENSIONS RVDd3.3 (2.9-3.5cm)Left Atrium(2D)3.5 (1.6-4.0cm) IVSd1.0 (0.7-1.1cm)Aortic Root(2D)2.7 (2.0-3.7cm) LVDd4.3 (3.9-5.9cm)LVOT Diameter2.0 (1.8-2.4cm) PWd0.9 (0.7-1.1cm)LVDs2.7 (2.5-4.0cm) FS (%) 36.4 %SV55.4 ml LVEF(%)66.4 (>50%) Aortic Valve AoV [place].170.6cm/sAoV VTI34.8cm AO Peak GR.11.6mmHgLVOT [place].129.4cm/s AO Mean GR.6mmHgAVA (VMAX)2.38cm2 Mitral Valve MV E Wgracxrv57.7cm/sMV DECEL [id number] MV A Junyjinl503.8cm/sE/A Ratio0.6 Pulmonary Valve PV Peak Nwskyndq93.5cm/s Tricuspid Valve TR P. Kjitatmm583lr/sTR Peak Gr.22mmHg LEFT VENTRICLE The left ventricle is normal size. There is normal left ventricular wall thickness. The left ventricu lar systolic function is nomal. Estimated ejection fraction 55%. There is normal LV segmental wall m otion. Transmitral Doppler flow pattern is Grade I-abnormal relaxation pattern. RIGHT VENTRICLE The right ventricle is normal size. There is normal right ventricular wall thickness. The right ventr icular systolic function is normal. ATRIA The left atrium size is normal. The right atrium is mildly dilated. The interatrial septum is intact with no evidence for an atrial septal defect or patent foramen ovale as noted on 2-D or Doppler imagi ng. AORTIC VALVE The aortic valve is normal in structure and function. Doppler and Color Flow revealed trace aortic re gurgitation. There is no significant aortic valvular stenosis. MITRAL VALVE The mitral valve is normal in structure and function. There is no evidence of mitral valve prolapse. There is no mitral valve stenosis. Doppler and Color Flow revealed no mitral valve regurgitation note d. TRICUSPID VALVE The tricuspid valve is normal in structure and function. Doppler and Color Flow revealed mild tricusp id regurgitation. Estimated PAP 25 mmHg. There is no tricuspid valve stenosis. PULMONIC VALVE The pulmonary valve is normal in structure and function. Doppler and Color Flow revealed no pulmonic valvular regurgitation. GREAT VESSELS The aortic root is normal in size. The ascending aorta is normal in size. The IVC is normal in size a nd collapses >50% with inspiration. PERICARDIAL EFFUSION There is no evidence of significant pericardial effusion. Critical Notification Critical Value: No <Conclusion> The left ventricular systolic function is nomal. Estimated ejection fraction 55%. There is normal LV segmental wall motion. Transmitral Doppler flow pattern is Grade I-abnormal relaxation pattern. Mild tricuspid regurgitation. Estimated PAP 25 mmHg. There is no evidence of significant pericardial effusion. Signed by : Micheal Hough, Electronically Approved : 10/30/2021 11:03:44
== END ==
LOC: ECHO 08:16
PROVIDERS: ATTEND Internal Medicine Hematology & Oncology
DX: I36.1 Nonrheumatic tricuspid (valve) insufficiency (principal); D05.12 Intraductal carcinoma in situ of left breast
CPT/HCPCS: 93306; C8929

== ENCOUNTER → 2021-11-04 | Outpatient (CLI) | payer MEDICARE ==
[2021-10-22 13:02] VITALS: BP 130/73
[2021-11-04 09:19] LABS: BASO % 1 % (0-3); EOS # 0.1 x10^3/uL (0.0-0.7); EOS % 2 % (0-3); HEMATOCRIT 38.1 % (36.0-47.0); HEMOGLOBIN 12.1 g/dL (12.0-15.5); LYMPH # 1.3 x10^3/uL (1.0-4.8); LYMPH % 18 % (24-48); MEAN CORPUSCULAR HEMOGLOBIN 29 pg (25-35); MEAN CORPUSCULAR HGB CONC 32 g/dL (31-37); MEAN CORPUSCULAR VOLUME 93 fL (79-100); MONO # 0.4 x10^3/uL (0.0-1.1); MONO % 6 % (0-9); NEUT % 73 % (31-73); PLATELET COUNT 257 x10^3/uL (140-400); RED BLOOD COUNT 4.11 x10^6/uL (3.50-5.40); RED CELL DISTRIBUTION WIDTH 13.7 % (11.5-14.5); WHITE BLOOD COUNT 6.8 x10^3/uL (4.0-11.0)
[2021-11-04 09:31] LABS: CALCIUM 9.3 mg/dL (8.5-10.1); CREATININE 1.2 mg/dL (0.6-1.0); GFR 51.5
[2021-11-04 09:36] LABS: ALBUMIN 3.6 g/dL (3.4-5.0); ALBUMIN/GLOBULIN RATIO 0.9 (1.0-1.7); TOTAL BILIRUBIN 0.3 mg/dL (0.2-1.0); TOTAL PROTEIN 7.6 g/dL (6.4-8.2)
== END ==
LOC: ONCLAB 08:47
PROVIDERS: ATTEND Internal Medicine Hematology & Oncology
DX: C50.012 Malignant neoplasm of nipple and areola, left female breast (principal)
CPT/HCPCS: 36415; 80053; 85025

== ENCOUNTER → 2021-11-11 | Outpatient (CLI) | payer MEDICARE ==
[2021-10-22 13:02] VITALS: BP 130/73
[2021-11-11 09:14] LABS: BASO % 1 % (0-3); EOS # 0.1 x10^3/uL (0.0-0.7); EOS % 2 % (0-3); HEMOGLOBIN 11.6 g/dL (12.0-15.5); LYMPH # 1.2 x10^3/uL (1.0-4.8); LYMPH % 24 % (24-48); MEAN CORPUSCULAR HEMOGLOBIN 30 pg (25-35); MEAN CORPUSCULAR HGB CONC 32 g/dL (31-37); MEAN CORPUSCULAR VOLUME 92 fL (79-100); MONO # 0.4 x10^3/uL (0.0-1.1); MONO % 7 % (0-9); NEUT # 3.5 x10^3/uL (1.8-7.7); NEUT % 67 % (31-73); PLATELET COUNT 307 x10^3/uL (140-400); RED BLOOD COUNT 3.91 x10^6/uL (3.50-5.40); RED CELL DISTRIBUTION WIDTH 13.6 % (11.5-14.5); WHITE BLOOD COUNT 5.3 x10^3/uL (4.0-11.0)
[2021-11-11 09:25] LABS: CALCIUM 9.5 mg/dL (8.5-10.1); CREATININE 1.2 mg/dL (0.6-1.0); GFR 51.5; POTASSIUM 3.5 mmol/L (3.5-5.1)
[2021-11-11 09:32] LABS: ALBUMIN 3.7 g/dL (3.4-5.0); ALBUMIN/GLOBULIN RATIO 0.9 (1.0-1.7); TOTAL BILIRUBIN 0.4 mg/dL (0.2-1.0); TOTAL PROTEIN 7.8 g/dL (6.4-8.2)
== END ==
LOC: ONCLAB 08:26
PROVIDERS: ATTEND Internal Medicine Hematology & Oncology
DX: C50.012 Malignant neoplasm of nipple and areola, left female breast (principal)
CPT/HCPCS: 36415; 80053; 85025

== ENCOUNTER → 2021-11-18 | Outpatient (CLI) | payer MEDICARE ==
[2021-10-22 13:02] VITALS: BP 130/73
[2021-11-18 09:00] LABS: BASO % 1 % (0-3); EOS % 1 % (0-3); HEMATOCRIT 35.6 % (36.0-47.0); HEMOGLOBIN 11.4 g/dL (12.0-15.5); LYMPH # 1.2 x10^3/uL (1.0-4.8); LYMPH % 24 % (24-48); MEAN CORPUSCULAR HEMOGLOBIN 29 pg (25-35); MEAN CORPUSCULAR HGB CONC 32 g/dL (31-37); MEAN CORPUSCULAR VOLUME 92 fL (79-100); MONO # 0.5 x10^3/uL (0.0-1.1); MONO % 10 % (0-9); NEUT # 3.1 x10^3/uL (1.8-7.7); NEUT % 63 % (31-73); PLATELET COUNT 271 x10^3/uL (140-400); RED BLOOD COUNT 3.86 x10^6/uL (3.50-5.40); WHITE BLOOD COUNT 4.9 x10^3/uL (4.0-11.0)
[2021-11-18 09:10] LABS: CALCIUM 9.5 mg/dL (8.5-10.1); CREATININE 1.1 mg/dL (0.6-1.0); POTASSIUM 3.6 mmol/L (3.5-5.1)
[2021-11-18 09:18] LABS: ALBUMIN 3.7 g/dL (3.4-5.0); TOTAL BILIRUBIN 0.3 mg/dL (0.2-1.0); TOTAL PROTEIN 7.4 g/dL (6.4-8.2)
== END ==
LOC: ONCLAB 08:35
PROVIDERS: ATTEND Internal Medicine Hematology & Oncology
DX: C50.012 Malignant neoplasm of nipple and areola, left female breast (principal)
CPT/HCPCS: 36415; 80053; 85025

== ENCOUNTER → 2021-11-25 | Outpatient (CLI) | payer MEDICARE ==
[2021-11-25 08:37] LABS: BASO % 1 % (0-3); EOS # 0.1 x10^3/uL (0.0-0.7); EOS % 1 % (0-3); HEMATOCRIT 34.5 % (36.0-47.0); HEMOGLOBIN 11.5 g/dL (12.0-15.5); LYMPH # 1.1 x10^3/uL (1.0-4.8); LYMPH % 21 % (24-48); MEAN CORPUSCULAR HEMOGLOBIN 31 pg (25-35); MEAN CORPUSCULAR HGB CONC 33 g/dL (31-37); MEAN CORPUSCULAR VOLUME 93 fL (79-100); MONO # 0.5 x10^3/uL (0.0-1.1); MONO % 10 % (0-9); NEUT # 3.4 x10^3/uL (1.8-7.7); NEUT % 68 % (31-73); PLATELET COUNT 252 x10^3/uL (140-400); RED BLOOD COUNT 3.72 x10^6/uL (3.50-5.40); RED CELL DISTRIBUTION WIDTH 14.5 % (11.5-14.5); WHITE BLOOD COUNT 5.1 x10^3/uL (4.0-11.0)
[2021-11-25 08:49] LABS: CALCIUM 9.2 mg/dL (8.5-10.1); CREATININE 1.3 mg/dL (0.6-1.0); POTASSIUM 3.7 mmol/L (3.5-5.1)
[2021-11-25 08:55] LABS: ALBUMIN 3.7 g/dL (3.4-5.0); TOTAL BILIRUBIN 0.4 mg/dL (0.2-1.0); TOTAL PROTEIN 7.4 g/dL (6.4-8.2)
== END ==
LOC: ONCLAB 08:18
PROVIDERS: ATTEND Internal Medicine Hematology & Oncology
DX: C50.012 Malignant neoplasm of nipple and areola, left female breast (principal)
CPT/HCPCS: 36415; 80053; 85025

== ENCOUNTER → 2021-12-02 | Outpatient (CLI) | payer MEDICARE ==
[2021-12-02 08:43] LABS: CREATININE 1.3 mg/dL (0.6-1.0); POTASSIUM 3.6 mmol/L (3.5-5.1)
[2021-12-02 08:44] LABS: BASO % 1 % (0-3); EOS # 0.1 x10^3/uL (0.0-0.7); EOS % 2 % (0-3); HEMATOCRIT 33.8 % (36.0-47.0); HEMOGLOBIN 11.2 g/dL (12.0-15.5); LYMPH # 1.1 x10^3/uL (1.0-4.8); LYMPH % 21 % (24-48); MEAN CORPUSCULAR HEMOGLOBIN 31 pg (25-35); MEAN CORPUSCULAR HGB CONC 33 g/dL (31-37); MEAN CORPUSCULAR VOLUME 93 fL (79-100); MONO # 0.5 x10^3/uL (0.0-1.1); MONO % 10 % (0-9); NEUT # 3.4 x10^3/uL (1.8-7.7); NEUT % 67 % (31-73); PLATELET COUNT 255 x10^3/uL (140-400); RED BLOOD COUNT 3.65 x10^6/uL (3.50-5.40); RED CELL DISTRIBUTION WIDTH 14.7 % (11.5-14.5); WHITE BLOOD COUNT 5.2 x10^3/uL (4.0-11.0)
[2021-12-02 08:49] LABS: ALBUMIN 3.4 g/dL (3.4-5.0); ALBUMIN/GLOBULIN RATIO 0.9 (1.0-1.7); TOTAL BILIRUBIN 0.4 mg/dL (0.2-1.0); TOTAL PROTEIN 7.2 g/dL (6.4-8.2)
== END ==
LOC: ONCLAB 08:19
PROVIDERS: ATTEND Physician Assistant
DX: C50.012 Malignant neoplasm of nipple and areola, left female breast (principal)
CPT/HCPCS: 36415; 80053; 85025

== ENCOUNTER → 2021-12-09 | Outpatient (CLI) | payer MEDICARE ==
[2021-12-09 08:50] LABS: BASO % 1 % (0-3); EOS # 0.1 x10^3/uL (0.0-0.7); EOS % 2 % (0-3); HEMOGLOBIN 10.9 g/dL (12.0-15.5); LYMPH # 1.1 x10^3/uL (1.0-4.8); LYMPH % 21 % (24-48); MEAN CORPUSCULAR HEMOGLOBIN 31 pg (25-35); MEAN CORPUSCULAR HGB CONC 33 g/dL (31-37); MEAN CORPUSCULAR VOLUME 93 fL (79-100); MONO # 0.5 x10^3/uL (0.0-1.1); MONO % 10 % (0-9); NEUT # 3.4 x10^3/uL (1.8-7.7); NEUT % 67 % (31-73); PLATELET COUNT 254 x10^3/uL (140-400); RED BLOOD COUNT 3.56 x10^6/uL (3.50-5.40); RED CELL DISTRIBUTION WIDTH 14.9 % (11.5-14.5)
[2021-12-09 09:09] LABS: CALCIUM 8.9 mg/dL (8.5-10.1); CREATININE 1.2 mg/dL (0.6-1.0); GFR 51.5; POTASSIUM 3.4 mmol/L (3.5-5.1)
[2021-12-09 09:15] LABS: ALBUMIN 3.3 g/dL (3.4-5.0); ALBUMIN/GLOBULIN RATIO 0.9 (1.0-1.7); TOTAL BILIRUBIN 0.3 mg/dL (0.2-1.0)
== END ==
LOC: ONCLAB 08:24
PROVIDERS: ATTEND Internal Medicine Hematology & Oncology
DX: C50.012 Malignant neoplasm of nipple and areola, left female breast (principal)
CPT/HCPCS: 36415; 80053; 85025

== ENCOUNTER → 2021-12-16 | Outpatient (CLI) | payer MEDICARE ==
[2021-12-16 08:58] LABS: BASO % 1 % (0-3); EOS # 0.1 x10^3/uL (0.0-0.7); EOS % 2 % (0-3); HEMATOCRIT 34.1 % (36.0-47.0); HEMOGLOBIN 11.4 g/dL (12.0-15.5); LYMPH # 1.2 x10^3/uL (1.0-4.8); LYMPH % 22 % (24-48); MEAN CORPUSCULAR HEMOGLOBIN 31 pg (25-35); MEAN CORPUSCULAR HGB CONC 33 g/dL (31-37); MEAN CORPUSCULAR VOLUME 93 fL (79-100); MONO # 0.4 x10^3/uL (0.0-1.1); MONO % 8 % (0-9); NEUT # 3.6 x10^3/uL (1.8-7.7); NEUT % 68 % (31-73); PLATELET COUNT 267 x10^3/uL (140-400); RED BLOOD COUNT 3.67 x10^6/uL (3.50-5.40); RED CELL DISTRIBUTION WIDTH 14.8 % (11.5-14.5); WHITE BLOOD COUNT 5.3 x10^3/uL (4.0-11.0)
[2021-12-16 09:14] LABS: CREATININE 1.2 mg/dL (0.6-1.0); GFR 51.5; POTASSIUM 3.8 mmol/L (3.5-5.1)
[2021-12-16 09:19] LABS: ALBUMIN 3.3 g/dL (3.4-5.0); ALBUMIN/GLOBULIN RATIO 0.8 (1.0-1.7); TOTAL BILIRUBIN 0.3 mg/dL (0.2-1.0); TOTAL PROTEIN 7.5 g/dL (6.4-8.2)
== END ==
LOC: ONCLAB 08:37
PROVIDERS: ATTEND Internal Medicine Hematology & Oncology
DX: C50.012 Malignant neoplasm of nipple and areola, left female breast (principal)
CPT/HCPCS: 36415; 80053; 85025

== ENCOUNTER → 2021-12-23 | Outpatient (CLI) | payer MEDICARE ==
[2021-12-23 08:59] LABS: BASO % 1 % (0-3); EOS # 0.2 x10^3/uL (0.0-0.7); EOS % 3 % (0-3); HEMATOCRIT 33.9 % (36.0-47.0); HEMOGLOBIN 11.4 g/dL (12.0-15.5); LYMPH # 1.3 x10^3/uL (1.0-4.8); LYMPH % 24 % (24-48); MEAN CORPUSCULAR HEMOGLOBIN 31 pg (25-35); MEAN CORPUSCULAR HGB CONC 34 g/dL (31-37); MEAN CORPUSCULAR VOLUME 93 fL (79-100); MONO # 0.5 x10^3/uL (0.0-1.1); MONO % 9 % (0-9); NEUT # 3.4 x10^3/uL (1.8-7.7); NEUT % 64 % (31-73); PLATELET COUNT 253 x10^3/uL (140-400); RED BLOOD COUNT 3.65 x10^6/uL (3.50-5.40); WHITE BLOOD COUNT 5.4 x10^3/uL (4.0-11.0)
[2021-12-23 09:20] LABS: CALCIUM 9.2 mg/dL (8.5-10.1); CREATININE 1.2 mg/dL (0.6-1.0); GFR 51.5; POTASSIUM 3.8 mmol/L (3.5-5.1)
[2021-12-23 09:21] LABS: ALBUMIN 3.4 g/dL (3.4-5.0); ALBUMIN/GLOBULIN RATIO 0.9 (1.0-1.7); TOTAL BILIRUBIN 0.4 mg/dL (0.2-1.0); TOTAL PROTEIN 7.3 g/dL (6.4-8.2)
== END ==
LOC: ONCLAB 08:05
PROVIDERS: ATTEND Internal Medicine Hematology & Oncology
DX: C50.012 Malignant neoplasm of nipple and areola, left female breast (principal)
CPT/HCPCS: 36415; 80053; 85025

== ENCOUNTER → 2021-12-30 | Outpatient (CLI) | payer MEDICARE ==
[2021-12-30 08:37] LABS: BASO # 0.1 x10^3/uL (0.0-0.2); BASO % 1 % (0-3); EOS # 0.1 x10^3/uL (0.0-0.7); EOS % 2 % (0-3); HEMATOCRIT 34.3 % (36.0-47.0); HEMOGLOBIN 11.4 g/dL (12.0-15.5); LYMPH # 1.3 x10^3/uL (1.0-4.8); LYMPH % 22 % (24-48); MEAN CORPUSCULAR HEMOGLOBIN 31 pg (25-35); MEAN CORPUSCULAR HGB CONC 33 g/dL (31-37); MEAN CORPUSCULAR VOLUME 93 fL (79-100); MONO # 0.5 x10^3/uL (0.0-1.1); MONO % 8 % (0-9); NEUT % 67 % (31-73); PLATELET COUNT 213 x10^3/uL (140-400); RED BLOOD COUNT 3.68 x10^6/uL (3.50-5.40); WHITE BLOOD COUNT 5.9 x10^3/uL (4.0-11.0)
[2021-12-30 08:50] LABS: ALBUMIN 3.4 g/dL (3.4-5.0); ALBUMIN/GLOBULIN RATIO 0.9 (1.0-1.7); CALCIUM 9.4 mg/dL (8.5-10.1); CREATININE 1.2 mg/dL (0.6-1.0); GFR 51.4; POTASSIUM 3.4 mmol/L (3.5-5.1); TOTAL BILIRUBIN 0.3 mg/dL (0.2-1.0)
== END ==
LOC: ONCLAB 08:08
PROVIDERS: ATTEND Internal Medicine Hematology & Oncology
DX: C50.012 Malignant neoplasm of nipple and areola, left female breast (principal)
CPT/HCPCS: 36415; 80053; 85025

== ENCOUNTER → 2022-01-06 | Outpatient (CLI) | payer MEDICARE ==
[2022-01-06 09:01] LABS: BASO % 1 % (0-3); EOS # 0.1 x10^3/uL (0.0-0.7); EOS % 2 % (0-3); HEMATOCRIT 32.6 % (36.0-47.0); HEMOGLOBIN 10.9 g/dL (12.0-15.5); LYMPH # 1.2 x10^3/uL (1.0-4.8); LYMPH % 22 % (24-48); MEAN CORPUSCULAR HEMOGLOBIN 31 pg (25-35); MEAN CORPUSCULAR HGB CONC 34 g/dL (31-37); MEAN CORPUSCULAR VOLUME 94 fL (79-100); MONO # 0.5 x10^3/uL (0.0-1.1); MONO % 10 % (0-9); NEUT # 3.4 x10^3/uL (1.8-7.7); NEUT % 66 % (31-73); PLATELET COUNT 238 x10^3/uL (140-400); RED BLOOD COUNT 3.48 x10^6/uL (3.50-5.40); RED CELL DISTRIBUTION WIDTH 15.1 % (11.5-14.5); WHITE BLOOD COUNT 5.3 x10^3/uL (4.0-11.0)
[2022-01-06 09:13] LABS: CALCIUM 9.1 mg/dL (8.5-10.1); CREATININE 1.3 mg/dL (0.6-1.0); GFR 46.9; POTASSIUM 3.4 mmol/L (3.5-5.1)
[2022-01-06 09:20] LABS: ALBUMIN 3.4 g/dL (3.4-5.0); ALBUMIN/GLOBULIN RATIO 0.9 (1.0-1.7); TOTAL BILIRUBIN 0.6 mg/dL (0.2-1.0)
== END ==
LOC: ONCLAB 08:46
PROVIDERS: ATTEND Internal Medicine Hematology & Oncology
DX: C50.012 Malignant neoplasm of nipple and areola, left female breast (principal); I82.402 Acute embolism and thrombosis of unspecified deep veins of left lower extremity; D64.81 Anemia due to antineoplastic chemotherapy; R53.0 Neoplastic (malignant) related fatigue
CPT/HCPCS: 36415; 80053; 85025